=== PATIENT | male | born 1960 ===

== ENCOUNTER 2023-12-06 18:28 | Outpatient (REF) | payer MEDICAID, SELFPAY ==
--- OUTSIDE RECORDS SUMMARY | 2023-12-06 18:31 | XMS_ITS | Encounter Summary ---
Author Organization [facility] Address [address] [place] [address] Care Team Providers Care Jackaroo Name Role Phone Sabrina Shukla MD Primary Care Provider [phone] Reason for Visit * Reason Onset Date Comments Requesting Sooner Appointment 11/29/2023 Encounter Details Date Type Department Care Team (Late st Contact Info) Description 11/29/2023 Telephone [facility] General Surgery - [facility] [address], [place] [address] Laina Pillai MD [address] [place] [phone] Requesting Sooner Appointment Social History Tobacco Use Types Packs/Day Years Used Date Smoking Tobacco: Never Smokeless Tobacco: Never Alcohol Use Standard Drinks/Week Comments Not Currently 0 (1 standard drink = 0.6 oz pur e alcohol) Interpersonal Safety Answer Date Record ed Physically Hurt Never 12/05/2019 Verbally Threaten Not on file 12/05/2019 Sex and Gender Information Value Date Recorded Sex Assigned at Not on file Gender Identity Male 08/30/2022 11:14 EDT Sexual Orientation Not on file documented as of this encounter Functional Status Functional Status Response Date of Assess ment Are you deaf or do you have serious difficulty h earing? No 08/30/2022 Because of a physical, menta l, or emotional condition, does this person have difficulty doing errands alone such as visiting a doctor's office or shopping? No 11/18/2023 Cognitive Status Response Date of Assessm ent Because of a physical, menta l, or emotional condition, does this person have serious difficulty concentrating, remembering, or making decisions? No 11/18/2023 documented as of this encounter Miscellaneous Notes * Telephone Encounter - Alicia Berry - 11/30/2023 0848 EDT Called LVM explained we just had an cancellation for 12/21 come open. Reviewed he needs h&p, EKG, and CBC within 30 days. Left [facility] direct line to follow up. * Telephone Encounter - Lottie Vazquez - 11/29/2023 1344 EDT Calling to ask if there is a sooner surgery appointment? documented in this encounter Plan of Treatment Upcoming Encounters Date Type Department Care Team (Latest Contact Info) Description 12/15/2023 15:[address] [facility] Pre-Surgical Testing [address], [place] [phone] 12/22/2023 13:10 EDT Hospital Encounter [facility] OR [address] [place] [phone] Laina Pillai MD [address] [place] [phone] 12/22/2023 13:10 EDT - 12/22/2023 15:05 EDT Surgery [facility] OR [address] [place] [address] Laina Pillai MD [address] [place] [phone] Left inguinal hernia repair with mesh. [[id number] (CPT??)] Scheduled Procedures Name Priority Associated Diagnoses Date/Ti me REPAIR, HERNIA, INGUINAL, REDUCIBLE, WITHOUT HISTORY OF PRIOR REPAIR, AGE 5 YEARS OR OLDER Non-recurrent unilateral inguinal hernia without obstruction or gangrene 12/22/2023 13:10 EDT documented as of this encounter Visit Diagnoses Not on filedocumented in this encounter Care Teams Jackaroo Relationship Specialty Start Date End Date Sabrina Shukla MD [address] [place] [phone] PCP - General 01/01/12 documented as of this encounter
--- OUTSIDE RECORDS SUMMARY | 2023-12-06 18:31 | XMS_ITS | Clinical Summary ---
Author Organization [facility] Address [address] [place] [address] Care Team Providers Care Critical Care Rn Name Role Phone Sabrina Shukla MD Primary Care Provider Allergies Active Allergy Reactions Criticality Noted Date Comments Apple 12/30/2015 [place] 12/30/2015 Tree Nut GI upset 01/08/2016 Medications Medication Sig Dispensed Refills Start Date End Date Status COQ10, UBIQUINOL, ORAL Take 25 mg by mouth daily. Active HYDROmorphone (DILAUDID) 2 mg tablet Take 1 Tab by mouth every 4 hours. Daily Max: 12 mg 15 Tab 01/10/2016 Active Additional Information Patient not taking.Reported on 11/18/2023 acetaminophen (TYLENOL) 500 mg tablet Take 2 Tabs by mouth every 6 hours as needed for Pain. 01/10/2016 Active Additional Information Patient not taking.Reported on 11/18/2023 COLLAGEN MISC by misc (non-drug; combo route) route. Active Active Problems Problem Noted Date Diagnosed Date Non-recurrent unilateral ing uinal hernia without obstruction or gangrene 11/18/2023 Right inguinal hernia 12/30/2015 Umbilical hernia without obstruction and without gangrene 12/30/2015 Encounters Date Type Department Care Team Description 12/01/2023 Telephone [facility] General Surgery - [place] [address] [place] [address] Laina Pillai MD Follow-up 11/30/2023 Telephone [facility] Bariatric Surgery [facility] [place] [address] Laina Pillai MD Other 11/29/[address] [phone] Laina Pillai MD Requesting Sooner Appointment 11/22/[address] [phone] Laina Pillai MD Follow-up 11/19/[address] [phone] Laina Pillai MD Follow-up 11/18/2023 14:00 EDT Office Visit [address] [phone] Laina Pillai MD Left inguinal hernia (Primary Dx) 11/18/2023 Prep for Procedure [facility] Bariatric Surgery [facility] [place] [address] [place] [address] Laina Pillai MD Non-recurrent unilateral inguinal hernia without obstruction or gangrene (Primary Dx) from Last 3 Months Surgical History Surgery Date Site/Laterality Comments BONE GRAFT hip Medical History Medical History Date Comments Hernia, inguinal, right 2009 Current: 12/27/2015 Colitis Arthritis Family History Medical History Relation Comments *Other(comment) Child Brain Tumor Relation Status Comments Child Social History Tobacco Use Types Packs/Day Years Used Date Smoking Tobacco: Never Smokeless Tobacco: Never Tobacco Cessation:Counseling Given: Not Answered Alcohol Use Standard Drinks/Week Comments Not Currently 0 (1 standard drink = 0.6 oz pur e alcohol) Interpersonal Safety Answer Date Record ed Physically Hurt Never 12/05/2019 Verbally Threaten Not on file 12/05/2019 Sex and Gender Information Value Date Recorded Sex Assigned at Not on file Gender Identity Male 08/30/2022 11:14 EDT Sexual Orientation Not on file Obstetrics History Last Filed Vital Signs Vital Sign Reading Time Taken Comments Blood Pressure 126/84 11/18/2023 1353 EDT Pulse 105 11/18/2023 1353 EDT Temperature 36.6 ??C (97.9 ??F) 08/30/2022 1037 EDT Respiratory Rate 16 08/30/2022 1037 EDT Oxygen Saturation 98% 11/18/2023 1353 EDT Inhaled Oxygen Concentration - - Weight 83.9 kg (185 lb) 11/18/2023 1353 EDT Height 180.3 cm (5' 10.98) 11/18/2023 1353 EDT Body Mass Index 25.81 11/18/2023 1353 EDT Plan of Treatment Upcoming Encounters Date Type Department Care Team (Latest Contact Info) Description 12/15/2023 15:20 EDT Appointment [facility] Pre-Surgical Testing [address], [place] [phone] 12/22/2023 13:10 EDT Hospital Encounter [facility] OR [address] [place] [phone] Laina Pillai MD [address] [place] [phone] 12/22/2023 13:10 EDT - 12/22/2023 15:05 EDT Surgery [facility] OR [address] [place] [address] Laina Pillai MD [address] [place] [phone] Left inguinal hernia repair with mesh. [62019 (CPT??)] Scheduled Procedures Name Priority Associated Diagnoses Date/Ti me REPAIR, HERNIA, INGUINAL, REDUCIBLE, WITHOUT HISTORY OF PRIOR REPAIR, AGE 5 YEARS OR OLDER Non-recurrent unilateral inguinal hernia without obstruction or gangrene 12/22/2023 13:10 EDT Health Maintenance Due Date Last Done Comments RSV Immunization ( o r 60+ Years) (1 - 1-dose 60+ series) 2019 COVID-19 Vaccine ( - 2022-24 season) 2023 Hepatitis C Screen Completed 01/01/2012 Procedures Procedure Name Priority Date/Time Associated Diagnosis Comments HEPATITIS C AB W REFLEX TO HCV RNA BY PCR Routine 01/01/2012 10:44 EDT Screening examination for venereal disease from Last 3 Months or Most Recently Relevant to Health Maintenance Results * HEPATITIS C ANTIBODY (01/01/2012 10:44 EDT) Hepatitis C Ab Negative [facility] Comment:Reference Range: Neg ative Blood specimen (specimen) 01/01/2012 10:44 EDT 01/01/2012 10:53 EDT Sabrina Shukla MD CHEMISTRY & BLOOD GA S ORDERABLES [facility] [address] [place] [address] from Last 3 Months or Most Recently Relevant to Health Maintenance Advance Directives For more information, please contact: [phone] * Full Code (Latest Code Status on File) Date Activated Date Inactivated Comments 01/10/2016 6:34 01/10/2016 15:09 Question Answer Comments Reason for decision includes: Full code consistent with overall plan of care Who participated in the discussion? Not Discusse d Care Teams Critical Care Rn Relationship Specialty Start Date End Date Sabrina Shukla MD [address] [place] [phone] PCP - General 01/01/12
--- OUTSIDE RECORDS SUMMARY | 2023-12-06 18:31 | XMS_ITS | Encounter Summary ---
Author Organization [facility] Address [address] [place] [address] Care Team Providers Care Executive Associate Name Role Phone Sabrina Shukla MD Primary Care Provider [phone] Reason for Visit * Reason Onset Date Comments Follow-up 12/01/2023 Encounter Details Date Type Department Care Team (Late st Contact Info) Description 12/01/2023 Telephone [facility] General Surgery - [facility] [address] [place], [place] [address] Laina Pillai MD [address] [place] [phone] Follow-up Social History Tobacco Use Types Packs/Day Years [...] * Telephone Encounter - Alicia Berry - 12/01/2023 0836 EDT Called patient to review opening still available to move his surgery up as requested. Patient agrees, 12/22/23 is what works best for him, confirmed that he moved up his h & p appt with his pcp to12/05, reviewed cbc and EKG at that appt as well. Explained one week before pat call, will call day before to review arrival time. Patient expresses understanding and agrees to these details. documented in this encounter Plan of Treatment Upcoming Encounters Date Type Department Care Team (Latest Contact Info) Description 12/15/2023 15:20 EDT Appointment [facility] Pre-Surgical Testing [address] [place], [place] [phone] 12/22/2023 13:10 EDT Hospital Encounter [facility] OR [address] [place] [address] Laina Pillai MD [address] [place] [phone] 12/22/2023 13:10 EDT - 12/22/2023 15:05 EDT Surgery [facility] OR [address] [place] [address] Laina Pillai MD [address] [place] [phone] Left inguinal hernia repair with mesh. [[id number] (CPT??)] Scheduled Procedures Name Priority Associated Diagnoses Date/Ti me REPAIR, HERNIA, INGUINAL, REDUCIBLE, WITHOUT HISTORY OF PRIOR REPAIR, AGE 5 YEARS OR OLDER Non-recurrent unilateral inguinal hernia without obstruction or gangrene 12/22/2023 13:10 EDT documented as of this encounter Visit Diagnoses Not on filedocumented in this encounter Care Teams Executive Associate Relationship Specialty Start Date End Date Sabrina Shukla MD [address] [place] [phone] PCP - General 01/01/12 documented as of this encounter
--- OUTSIDE RECORDS SUMMARY | 2023-12-06 18:31 | XMS_ITS | Encounter Summary ---
Author Organization [facility] Address [address] [place] [address] Care Team Providers Care Commission Clerk Name Role Phone Sabrina Shukla MD Primary Care Provider [phone] Reason for Visit * Reason Comments New Patient Visit [facility] * Consult (Routine) - Receiving Office to Obtain Authorization Specialty Diagnoses / Procedures Referred By Katarzyna jose Referred To Contact General Surgery Diagnoses Left inguinal hernia Karma Brownlee PA-C [address] [place] [address] Surgery [address] [place] [id number] Referral ID Status Reason Start Date Expiration Date Visits Requested Visits Authorized [id number] Receiving Office to Obtain Authorization Specialty Services Required 1 1 Encounter Details Date Type Department Care Team (Late st Contact Info) Description 11/18/2023 14:00 EDT Office Visit [facility] General Surgery - Main [address] [address] Laina Pillai MD [address] [place] [phone] Left inguinal hernia (Primary Dx) Social History Tobacco Use Types Packs/Day Years [...] on file documented as of this encounter Last Filed Vital Signs Vital Sign Reading Time Taken Comments Blood Pressure 126/84 11/18/2023 1353 EDT Pulse 105 11/18/2023 1353 EDT Temperature - - Respiratory Rate - - Oxygen Saturation 98% 11/18/2023 1353 EDT Inhaled Oxygen Concentration - - Weight 83.9 kg (185 lb) 11/18/2023 1353 EDT Height 180.3 cm (5' 10.98) 11/18/2023 1353 EDT Body Mass Index 25.81 11/18/2023 1353 EDT documented in this encounter Functional Status Functional Status Response [...] No 11/18/2023 documented as of this encounter Progress Notes * Laina Pillai MD - 11/18/2023 1400 EDT [facility] General Surgery Consultation Note - Initial Visit Note Date: 11/18/2023 Patient: Jose Maria Reddy Subjective: Jose Maria Reddy is a 63 y.o. male who presents today for New Patient Visit ([facility]/) I am seeing Jose Maria Reddy in consultation, at the request of Karma Brownlee PA-C, for L inguinal bulge. Patient History of Present Illness: Bulge Location: L groin Duration: 1 year Size: 5x8 cm Increase in size: yes Reducible: Yes Pain: no Associated obstructive GI symptoms: none Hx of hernia: R inguinal + umbilical [address] Moreno Weight loss : none Weight gain: none The patient's problem list, allergies, immunizations, and medications were documented, reviewed, and updated as follows: Patient Active Problem List Diagnosis Right inguinal hernia Umbilical hernia without obstruction and without gangrene Allergies: Apples [apple], [place], and Nuts [tree nut] Immunizations: There is no immunization history on file for this patient. Medications: Current Outpatient Medications Medication acetaminophen (TYLENOL) 500 mg tablet COLLAGEN MISC COQ10, UBIQUINOL, ORAL HYDROmorphone (DILAUDID) 2 mg tablet No current facility-administered medications for this visit. History was documented as follows: Past Medical History: Diagnosis Date Arthritis Colitis Hernia, inguinal, right 2008 Current: 12/27/2015 Past Surgical History: Procedure Laterality Date BONE GRAFT hip Social History Socioeconomic History Marital status: Spouse name: Not on file Number of children: Not on file Years of education: Not on file Highest education level: Not on file Occupational History Not on file Tobacco Use Smoking status: Never Smokeless tobacco: Never Substance and Sexual Activity Alcohol use: Not Currently Drug use: Never Sexual activity: Not on file Other Topics Concern Not on file Social History Narrative Not on file Social Determinants of Health Financial Strain: Not on file Food Insecurity: Not on file Transportation Needs: Not on file Physical Activity: Not on file Housing Stability: Not on file Family History Problem Relation Age of Onset *Other(comment) Child Brain Tumor Review of Systems: A 11-point review of systems was completed. Pertinent items are noted in Subjective/HPI. Constitutional: Negative for fever. HENT: Negative for neck pain. Eyes: Negative for blurred vision. Respiratory: Negative for shortness of breath. Cardiovascular: Negative for chest pain, palpitations and orthopnea. Gastrointestinal: (-) for abdominal pain. Genitourinary: Negative for dysuria. Skin: Negative for rash. Neurological: Negative for dizziness. Endo/Heme/Allergies: Negative. Psychiatric/Behavioral: Normal. Objective: Physical Examination: Vitals: BP 126/84 Pulse 105 Ht 180.3 cm (70.98) Wt 83.9 kg (185 lb) SpO2 98% BMI 25.81 kg/m?? Mr. Reddy is a pleasant male who is awake, alert, oriented x3. He did not show any signs of acutedistress. He is not in pain. His vitals were stable. Nursing note and vitals reviewed. The patient was examined & the plan was discussed in the presence of the medical student , Candelario Silvestre, MS3. Constitutional: He appears well-nourished. No distress. HENT: Normal Head: Atraumatic. Right Ear: External ear normal. Left Ear: External ear normal. Mouth/Throat: Oropharynx is clear and moist. Eyes: Conjunctivae are normal. No scleral icterus. Neck: Neck supple. Cardiovascular: Normal rate, regular rhythm and normal heart sounds. Pulmonary/Chest: Effort normal and breath sounds normal. No respiratory distress. Abdominal: No obvious abdominal scar. Abdomen soft, lax, no distention, no RUQ & epigastric tenderness. Bowel sounds are normal .Bulge in L inguinal area. Inguinal scrotal area was examined whilethe patient was in standing position. There is obvious L groin bulge, & ( +) cough impulse. Thepatient then examined while on supine position, the bulge is easily reduced on the L side. The R groin area without defect or bulge. Both testes are descended in the scrotum with out obvious masses. Musculoskeletal: He exhibits no edema. Neurological: He is alert. Skin: Skin is warm. Psychiatric: He has a normal mood and affect. His behavior is normal. Judgment and thought content normal. Laboratory: Phlebotomy Only on 01/01/2012 Component Date Value Ref Range Status Hepatitis B Surface Ag 01/01/2012 Negative Final Reference Range: Negative Hepatitis B Surface Ab 01/01/2012 Negative Final Comment: Reference Range: Negative Interpretation depends on clinical setting. Hepatitis C Ab 01/01/2012 Negative Final Reference Range: Negative Assessment: Reducible L inguinal hernia. The above-mentioned findings were discussed with him in detail. Plan: Counseled patient about treatment options for L inguinal hernia. We discussed with him an open L inguinal hernia repair with mesh. The risks, benefits and alternatives were explained. The operative procedure was discussed including the risks of general anesthetic and medications and the potential risk of complications. The risks include but not limited to infection, bleeding, recurrence, chronic pain, nerve, vessels, visceral and testicular duct injury and retention of urine. There could also be the need for re-operation. Post-operative recovery was discussed, as well as the need for post surgery follow-up. We discusseddividing the nerves to potentially decrease the chance of post operative chronic or persistent pain. The patient understands the risks; any and all questions were answered to the patient's satisfaction. Consent form was NOT obtained. H&P from PCP CBC EKG He will be scheduled for elective repair and the procedure will be performed under general anesthesia with endotracheal intubation. He was counseled regarding signs and symptoms of incarcerated hernia and was advised to seek medical care at ED if he experiences these. I would like to thank Karma Brownlee PA-C for providing me the opportunity to participate in themanagement of this patient. Submitted by: Laina Pillai MD documented in this encounter Plan of Treatment Upcoming Encounters Date Type Department Care Team (Latest Contact Info) Description 12/15/2023 15:20 EDT Appointment [facility] Pre-Surgical Testing [address] [place] [phone] 12/22/2023 13:10 EDT Hospital Encounter [facility] OR [address] [place], [place] [phone] Laina Pillai MD [address] [place] [phone] 12/22/2023 13:10 EDT - 12/22/2023 15:05 EDT Surgery [facility] OR [address] [place] [address] Laina Pillai MD [address] [place] [phone] Left inguinal hernia repair with mesh. [[id number] (CPT??)] Scheduled Orders Name Type Priority Associated Diagnoses Orde r Schedule EKG 12-LEAD ECG Routine Left inguinal hernia Ordered: 11/18/2023 COMPLETE BLOOD COUNT Lab Routine Left inguinal hernia Expected: 11/19/2023 (Approximate), Expires: 11/17/2024 Scheduled Procedures Name Priority Associated Diagnoses Date/Ti me REPAIR, HERNIA, INGUINAL, REDUCIBLE, WITHOUT HISTORY OF PRIOR REPAIR, AGE 5 YEARS OR OLDER Non-recurrent unilateral inguinal hernia without obstruction or gangrene 12/22/2023 13:10 EDT documented as of this encounter Visit Diagnoses Diagnosis Left inguinal hernia- Primary Inguinal hernia without mention of obstruction or gangrene, unilateral or unspecified, (not specified as recurrent) Non-recurrent unilateral inguinal hernia without obstruction or gangrene documented in this encounter Care Teams Commission Clerk Relationship Specialty Start Date End Date Sabrina Shukla MD [address] [place] [phone] PCP - General 01/01/12 documented as of this encounter
--- OUTSIDE RECORDS SUMMARY | 2023-12-06 18:31 | XMS_ITS | Encounter Summary ---
Author Organization [facility] Address [address] [place] [address] Care Team Providers Care Sponsorship Coordinator Name Role Phone Sabrina Shukla MD Primary Care Provider Reason for Visit * Reason Onset Date Comments Follow-up 11/19/2023 Encounter Details Date Type Department Care Team (Late st Contact Info) Description 11/19/2023 Telephone [facility] General Surgery - [facility] [address] [place], [place] [address] Laina Pillai MD [address] [place] [phone] Follow-up Social History Tobacco Use Types [...] * Telephone Encounter - Alicia Berry - 11/19/2023 1429 EDT Called patient at [phone] and left message requesting call back to let me know if he would like to move up his surgery date to 12/31/23, currently booked for 01/10 but patient requested to be on waitlist and get in jorden. Left [facility] direct line. documented in this encounter Plan of Treatment Upcoming Encounters Date Type Department Care Team (Latest Contact Info) Description 12/15/2023 15:20 EDT Appointment [facility] Pre-Surgical Testing [address] [place] [phone] 12/22/2023 13:10 EDT Hospital Encounter [facility] OR [address] [place] [address] Laina Pillai MD [address] [place] [phone] 12/22/2023 13:10 EDT - 12/22/2023 15:05 EDT Surgery [facility] OR [address] [place] [phone] Laina Pillai MD [address] [place] [phone] Left inguinal hernia repair with mesh. [[id number] (CPT??)] Scheduled Procedures Name Priority Associated Diagnoses Date/Ti me REPAIR, HERNIA, INGUINAL, REDUCIBLE, WITHOUT HISTORY OF PRIOR REPAIR, AGE 5 YEARS OR OLDER Non-recurrent unilateral inguinal hernia without obstruction or gangrene 12/22/2023 13:10 EDT documented as of this encounter Visit Diagnoses Not on filedocumented in this encounter Care Teams Sponsorship Coordinator Relationship Specialty Start Date End Date Sabrina Shukla MD [address] [place] [phone] PCP - General 01/01/12 documented as of this encounter
--- OUTSIDE RECORDS SUMMARY | 2023-12-06 18:31 | XMS_ITS | Encounter Summary ---
Author Organization [facility] Address [address] [place] [address] Care Team Providers Care Fence Machine Operator Name Role Phone Sabrina Shukla MD Primary Care Provider [phone] Reason for Visit * Reason Comments Insect Bite Pt found tick on lef t axilla this AM in the shower. Pt removed it & believed he got it all. Tick may have been attached for 3 days. Did not appear engorged. Encounter Details Date Type Department Care Team (Late st Contact Info) Description 08/30/2022 10:31 EDT - 08/30/2022 11:22 EDT Emergency [facility] Emergency Department [address], [place] [id number] Lefty Mccoy, PAEmily [address] [place] [address] Tick bite of left back wall of thorax, initial encounter (Primary Dx) Discharge Disposition: Home or Self Care Social History Tobacco Use Types Packs/Day Years [...] Sign Reading Time Taken Comments Blood Pressure 128/105 08/30/2022 1037 EDT Pulse 111 08/30/2022 1037 EDT Temperature 36.6 ??C (97.9 ??F) 08/30/2022 1037 EDT Respiratory Rate 16 08/30/2022 1037 EDT Oxygen Saturation 96% 08/30/2022 1037 EDT Inhaled Oxygen Concentration - - Weight - - Height - - Body Mass Index - - documented in this encounter Functional Status Functional Status Response Date of Assess ment Are you deaf or do you have serious difficulty h earing? No 08/30/2022 documented as of this encounter Discharge Instructions * Discharge Instructions* Lefty Mccoy PA-C - 08/30/2022 11:11 EDT You were seen today for a tick bite. You were given a dose of prophylactic antibiotic. Follow-up with your PCP. Return to the ED for new or worsening symptoms. documented in this encounter Medications at Time of Discharge Medication Sig Dispensed Refills Start Date End Date acetaminophen (TYLENOL) 500 mg tablet Take 2 Tabs by mouth every 6 hours as needed for Pain. 01/10/2016 COLLAGEN MISC by misc (non-drug; combo route) route. COQ10, UBIQUINOL, ORAL Take 25 mg by mouth daily. HYDROmorphone (DILAUDID) 2 mg tablet Take 1 Tab by mouth every 4 hours. 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 He states he feels quite anxious. He has mild left hip pain but denies other arthralgia.Denies fever, chills, body, chest pain, palpitations. On exam he is quite anxious and moderately tachycardic. Chart review shows his heart rate was 114 during his last documented visit in [place]. He has approximately 0.5 cm area of erythema with no tenderness or swelling to his left posterior shoulder, where he pulled a tick off earlier today. Given timing of tick bite, he will be given a prophylactic dose of doxycycline. I suspect his tachycardia is due to anxiety, he is quite anxious and states he feels very anxious being here. It appears that this was present with his previous documented visit in [place] as well, I donot feel he needs further work-up of his tachycardia. He was discharged home. Encouraged follow-up with PCP. Medical Decision Making Final diagnoses: Tick bite of left back wall of thorax, initial encounter Disposition: Discharged Chief complaint: Tick bite HPI Jose Maria Reddy is a 62 y.o. male with history of anxiety who presents to the ED for a tick bite tohis left posterior shoulder that he believes has been on him for about 3 days since he landscape to3 days ago. He removed it this morning. He states it was not engorged. Denies fever, chills, body aches. He does have mild left hip pain. He states he feels quite anxious. History was provided by: Patient Records reviewed include: None Patient's pertinent PMH, FH, SH were reviewed and edited as necessary. Nursing notes reviewed. A medical screening exam was performed. Physical Exam BP (!) 128/105 Pulse (!) 111 Temp 36.6 ??C (97.9 ??F) (Oral) Resp 16 SpO2 96% Physical Exam Vitals and nursing note reviewed. Constitutional: General: He is not in acute distress. Appearance: Normal appearance. HENT: Head: Normocephalic and atraumatic. Nose: Nose normal. Mouth/Throat: Mouth: Mucous membranes are moist. Eyes: Extraocular Movements: Extraocular movements intact. Pupils: Pupils are equal, round, and reactive to light. Cardiovascular: Rate and Rhythm: Tachycardia present. Pulmonary: Effort: No respiratory distress. Skin: General: Skin is warm and dry. Comments: Approximately 0.5 cm area of erythema on his left posterior shoulder, where he states he recently pulled a tick off of himself Neurological: Mental Status: He is alert and oriented to person, place, and time. Psychiatric: Behavior: Behavior normal. Comments: Patient appears quite anxious Procedures Procedures documented in this encounter Plan of Treatment Upcoming Encounters Date Type Department Care Team (Latest Contact Info) Description 12/15/2023 15:20 EDT Appointment [facility] Pre-Surgical Testing [address] [place], [place] [id number] 12/22/2023 13:10 EDT Hospital Encounter [facility] OR [address] [place] [phone] Laina Pillai MD [address] [place] [phone] 12/22/2023 13:10 EDT - 12/22/2023 15:05 EDT Surgery [facility] OR [address] [place] [address] Laina Pillai MD [address] [place] [phone] Left inguinal hernia repair with mesh. [47640 (CPT??)] Scheduled Procedures Name Priority Associated Diagnoses Date/Ti me REPAIR, HERNIA, INGUINAL, REDUCIBLE, WITHOUT HISTORY OF PRIOR REPAIR, AGE 5 YEARS OR OLDER Non-recurrent unilateral inguinal hernia without obstruction or gangrene 12/22/2023 13:10 EDT documented as of this encounter Visit Diagnoses Diagnosis Tick bite of left back wall of thorax, initial encounter- Primary Non-recurrent unilateral inguinal hernia without obstruction or gangrene documented in this encounter Administered Medications Inactive Administered Medications - up to 3 most recent administrations Medication Order MAR Action Action Date Dose Rate Site doxycycline (VIBRAMYCIN) capsule 200 mg 200 mg, oral, NOW X1, 1 dose, On 08/30/22 at 1130, STAT Given 08/30/2022 11:17 EDT 200 mg documented in this encounter Active and Recently Administered Medications Times are shown in EDT. Scheduled Medication Order 08/28/2022 08/29/2022 08/30/2022 doxycycline (VIBRAMYCIN) capsule 200 mg (COMPLETED) 200 mg, oral, NOW X1, 1 dose, On 08/30/22 at 1130, STAT 1117 (Given - Provid er: Sherri Costa RN) documented in this encounter Orders Medications Ordered That Wilder ht Not Have Been Administered Count Last Ordered Date First Ordered Date doxycycline (VIBRAMYCIN) capsule 200 mg 1 0 08/30/2022 documented in this encounter Care Teams Fence Machine Operator Relationship Specialty Start Date End Date Sabrina Shukla MD [address] [place] [address] PCP - General 01/01/12 documented as of this encounter
--- OUTSIDE RECORDS SUMMARY | 2023-12-06 18:31 | XMS_ITS | Encounter Summary ---
Author Organization [facility] Address [address] [place] [address] Care Team Providers Care Apparel Sales Leader Name Role Phone Sabrina Shukla MD Primary Care Provider [phone] Encounter Details Date Type Department Care Team (Latest Contact Info) Description 11/18/2023 Prep for Procedure [facility] Bariatric Surgery [facility] [address] [place], [place] [phone] Laina Pillai MD [address] [place] [phone] Non-recurrent unilateral inguinal hernia without obstruction or gangrene (Primary Dx) Social History Tobacco Use Types [...] No 11/18/2023 documented as of this encounter Plan of Treatment Upcoming Encounters Date Type Department Care Team (Latest Contact Info) Description 12/15/2023 15:20 EDT Appointment [facility] Pre-Surgical Testing [address] [place], [place] [phone] 12/22/2023 13:10 EDT Hospital Encounter [facility] OR [address] [place] [phone] Laina Pillai MD [address] [place] [phone] 12/22/2023 13:10 EDT - 12/22/2023 15:05 EDT Surgery [facility] OR [address] [place] [phone] Laina Pillai MD [address] [place] [phone] Left inguinal hernia repair with mesh. [[id number] (CPT??)] Scheduled Procedures Name Priority Associated Diagnoses Date/Ti me REPAIR, HERNIA, INGUINAL, REDUCIBLE, WITHOUT HISTORY OF PRIOR REPAIR, AGE 5 YEARS OR OLDER Non-recurrent unilateral inguinal hernia without obstruction or gangrene 12/22/2023 13:10 EDT documented as of this encounter Visit Diagnoses Diagnosis Non-recurrent unilateral inguinal hernia without obstruction or gangrene- Primary Non-recurrent unilateral inguinal hernia without obstruction or gangrene- Primary Non-recurrent unilateral inguinal hernia without obstruction or gangrene documented in this encounter Orders Case Request Count Last Ordered Date First Orde red Date CASE REQUEST OPERATING ROOM 1 11/18/2023 documented in this encounter Care Teams Apparel Sales Leader Relationship Specialty Start Date End Date Sabrina Shukla MD [address] [place] [address] PCP - General 01/01/12 documented as of this encounter
--- OUTSIDE RECORDS SUMMARY | 2023-12-06 18:31 | XMS_ITS | Encounter Summary ---
Author Organization [facility] Address [address] [place] [address] Care Team Providers Care Professional Nurse Name Role Phone Sabrina Shukla MD Primary Care Provider [phone] Reason for Visit * Reason Onset Date Comments Follow-up 11/22/2023 Encounter Details Date Type Department Care Team (Late st Contact Info) Description 11/22/2023 Telephone [facility] General Surgery - [facility] [address] [place], [place] [phone] Laina Pillai MD [address] [place] [phone] Follow-up Social History Tobacco Use Types [...] * Telephone Encounter - Alicia Berry - 11/22/2023 9731 EDT Patient called [facility] direct line to advise that 12/31/23 does work and asked to remain on waitlist for sooner surgery, advised his h/p is scheduled with his pcp and I advised him pat call 12/24/23 documented in this encounter Plan of Treatment Upcoming Encounters Date Type Department Care Team (Latest Contact Info) Description 12/15/2023 15:20 EDT Appointment [facility] Pre-Surgical Testing [address] [place], [place] [phone] 12/22/2023 13:10 EDT Hospital Encounter [facility] OR [address] [place], [place] [phone] Laina Pillai MD [address] [place] [phone] 12/22/2023 13:10 EDT - 12/22/2023 15:05 EDT Surgery [facility] OR [address] [place], [place] [phone] Laina Pillai MD [address] [place] [phone] Left inguinal hernia repair with mesh. [[id number] (CPT??)] Scheduled Procedures Name Priority Associated Diagnoses Date/Ti me REPAIR, HERNIA, INGUINAL, REDUCIBLE, WITHOUT HISTORY OF PRIOR REPAIR, AGE 5 YEARS OR OLDER Non-recurrent unilateral inguinal hernia without obstruction or gangrene 12/22/2023 13:10 EDT documented as of this encounter Visit Diagnoses Not on filedocumented in this encounter Care Teams Professional Nurse Relationship Specialty Start Date End Date Sabrina Shukla MD [address] [place] [id number] PCP - General 01/01/12 documented as of this encounter
--- OUTSIDE RECORDS SUMMARY | 2023-12-06 18:31 | XMS_ITS | Referral Summary ---
Author Organization [facility] Address [address] [place] [address] Care Team Providers Care Return Checker Name Role Phone Sabrina Shukla MD Primary Care Provider Encounters Date Type Department Care Team Description 12/01/[address] [phone] Laina Pillai MD Follow-up 11/30/2023 Telephone [facility] Bariatric Surgery [facility] [address] [place], [place] [phone] Laina Pillai MD Other 11/29/[address] [phone] Laina Pillai MD Requesting Sooner Appointment 11/22/[address] [phone] Laina Pillai MD Follow-up 11/19/[address] [phone] Laina Pillai MD Follow-up 11/18/2023 Prep for Procedure [facility] Bariatric Surgery [facility] [address] [place], [place] [phone] Laina Pillai MD Non-recurrent unilateral inguinal hernia without obstruction or gangrene (Primary Dx) 11/18/2023 14:00 EDT Office Visit [facility] General Surgery - Main [address] [phone] Laina Pillai MD Left inguinal hernia (Primary Dx) from Last 3 Months Allergies Active Allergy Reactions Criticality Noted Date Comments Apple 12/30/2015 [place] 12/30/2015 Tree Nut GI upset 01/08/2016 Medications [...] hernia without obstruction and without gangrene 12/30/2015 Social History Tobacco Use Types Packs/Day Years [...] 11:14 EDT Sexual Orientation Not on file Last Filed Vital Signs Vital Sign Reading [...] Body Mass Index 25.81 11/18/2023 1353 EDT Functional Status Functional Status Response Date of [...] concentrating, remembering, or making decisions? No 11/18/2023 Plan of Treatment Upcoming Encounters Date Type Department Care Team (Latest Contact Info) Description 12/15/2023 15:20 EDT Appointment [facility] Pre-Surgical Testing [address] [place] [phone] 12/22/2023 13:10 EDT Hospital Encounter [facility] [place] OR [address] [place], [place] [phone] Laina Pillai MD [address] [place] [phone] 12/22/2023 13:10 EDT - 12/22/2023 15:05 EDT Surgery [facility] [place] OR [address] [place], [place] [phone] Laina Pillai MD [address] [place] [phone] Left inguinal hernia repair with mesh. [[id number] (CPT??)] Scheduled Procedures Name Priority Associated Diagnoses Date/Ti me REPAIR, HERNIA, INGUINAL, REDUCIBLE, WITHOUT HISTORY OF PRIOR REPAIR, AGE 5 YEARS OR OLDER Non-recurrent unilateral inguinal hernia without obstruction or gangrene 12/22/2023 13:10 EDT Procedures Procedure Name Priority Date/Time Associated Diagnosis Comments HEPATITIS C AB W REFLEX TO HCV RNA BY PCR Routine 01/01/2012 10:44 EDT Screening examination for venereal disease from Last 3 Months or Most Recently Relevant to Health Maintenance Results * HEPATITIS C ANTIBODY (01/01/2012 10:44 EDT) Hepatitis C Ab Negative [facility] Comment:Reference Range: Neg ative Blood specimen (specimen) 01/01/2012 10:44 EDT 01/01/2012 10:53 EDT Sabrina Shukla MD CHEMISTRY & BLOOD GA S ORDERABLES [facility] [address] [place] [address] from Last 3 Months or Most Recently Relevant to Health Maintenance Advance Directives For more information, please contact: [phone] * Full Code (Latest Code Status on File) Date Activated Date Inactivated Comments 01/10/2016 6:34 01/10/2016 15:09 Question Answer Comments Reason for decision includes: Full code consistent with overall plan of care Who participated in the discussion? Not Discusse d Care Teams Return Checker Relationship Specialty Start Date End Date Sabrina Shukla MD [address] [place] [address] PCP - General 01/01/12
--- OUTSIDE RECORDS SUMMARY | 2023-12-06 18:31 | XMS_ITS | Encounter Summary ---
Author Organization [facility] Address [address] [place] [address] Care Team Providers Care [employer] Combination Teacher Name Role Phone Sabrina Shukla MD Primary Care Provider [phone] Reason for Visit * Reason Onset Date Comments Other 11/30/2023 Encounter Details Date Type Department Care Team (Late st Contact Info) Description 11/30/2023 Telephone [facility] Bariatric Surgery [address] [phone] Laina Pillai MD [address] [place] [phone] Other Social History Tobacco Use Types Packs/Day Years [...] encounter Miscellaneous Notes * Telephone Encounter - RichieDenver denney - 11/30/2023 1523 EDT Patient returning call to Alicia Berry about her message below, he states he can do the Earlierdate offered - Please call him back to confirm .. Called LVM explained we just had an cancellation for 12/21 come open. Reviewed he needs h&p, EKG, and CBC within 30 days. Left [facility] direct line to follow up. documented in this encounter Plan of Treatment Upcoming Encounters Date Type Department Care Team (Latest Contact Info) Description 12/15/2023 15:20 EDT Appointment [facility] Pre-Surgical Testing [address] [place] [phone] 12/22/2023 13:10 EDT Hospital Encounter [facility] OR [address] [place] [address] Laina Pillai MD [address] [place] [phone] 12/22/2023 13:10 EDT - 12/22/2023 15:05 EDT Surgery [facility] OR [address] [place] [address] Laina Pillai MD [address] [place] [phone] Left inguinal hernia repair with mesh. [[id number] (CPT??)] Scheduled Procedures Name Priority Associated Diagnoses Date/Ti me REPAIR, HERNIA, INGUINAL, REDUCIBLE, WITHOUT HISTORY OF PRIOR REPAIR, AGE 5 YEARS OR OLDER Non-recurrent unilateral inguinal hernia without obstruction or gangrene 12/22/2023 13:10 EDT documented as of this encounter Visit Diagnoses Not on filedocumented in this encounter Care Teams [employer] Combination Teacher Relationship Specialty Start Date End Date Sabrina Shukla MD [address] [place] [phone] PCP - General 01/01/12 documented as of this encounter
--- OUTSIDE RECORDS SUMMARY | 2023-12-06 18:32 | XMS_ITS | Encounter Summary ---
Author Organization [facility] Address [address] [place] [address] Care Team Providers Care Race And Sports Book Writer Name Role Phone Sabrina Shukla MD Primary Care Provider Reason for Visit * Reason Comments New Patient Visit INGUINAL HERNIA * Consult (Routine) - Closed Specialty Diagnoses / Procedures Referred By Katarzyna jose Referred To Contact General Surgery Diagnoses Inguinal hernia, right Klever, Brendan Nobles MD [address] [place] [phone] Bubba Moreno MD [address] [place] [phone] Referral ID Status Reason Start Date Expiration Date Visits Re quested Visits Authorized [id number] Closed 1 1 Encounter Details Date Type Department Care Team (Late st Contact Info) Description 12/30/2015 14:00 EDT Office Visit [facility] General Surgery - [address] [address] Bubba Moreno MD [address] [place] [phone] Right inguinal hernia (Primary Dx); Umbilical hernia without obstruction and without gangrene Social History Tobacco Use Types Packs/Day Years Used Date Smoking Tobacco: Never Smokeless Tobacco: Never Sex and Gender Information Value Date Recorded Sex Assigned at Not on file Gender Identity Male 08/30/2022 11:14 EDT Sexual Orientation Not on file documented as of this encounter Last Filed Vital Signs Vital Sign Reading Time Taken Comments Blood Pressure 122/70 12/30/2015 1409 EDT Pulse 84 12/30/2015 1409 EDT Temperature - - Respiratory Rate 16 12/30/2015 1409 EDT Oxygen Saturation - - Inhaled Oxygen Concentration - - Weight 92.4 kg (203 lb 9.6 oz) 12/30/2015 1409 E DT Height 181.6 cm (5' 11.5) 12/30/2015 1409 EDT Body Mass Index 28 12/30/2015 1409 EDT documented in this encounter Progress Notes * Bubba Moreno MD - 12/30/2015 1650 EDT Subjective: Patient ID: Jose Maria Reddy is an 55 y.o. male. Chief Complaint Patient presents with ??? New Patient Visit INGUINAL HERNIA HPI He has bulging in his right groin that is getting larger and more uncomfortable with activity. It has been present for a long time. He wishes to have something done. No bulge on the left groin. No GI symptoms. No symptoms. Patient Active Problem List Diagnosis ??? Right inguinal hernia ??? Umbilical hernia without obstruction and without gangrene Past Medical History Diagnosis Date ??? Arthritis ??? Colitis ??? Hernia, inguinal, right 2008 Current: 12/27/2015 Past Surgical History Procedure Laterality Date ??? Bone graft hip Family History Problem Relation Age of Onset ??? *Other(comment) Child Brain Tumor Social Social History Substance Use Topics ??? Smoking status: Never Smoker ??? Smokeless tobacco: Never Used ??? Alcohol use None No current outpatient prescriptions on file prior to visit. No current facility-administered medications on file prior to visit. Allergies Allergen Reactions ??? Apples [Apple] ??? [place] ROS - See HPI A 12 system review is otherwise negative Objective: Visit Vitals ??? BP 122/70 ??? Pulse 84 ??? Resp 16 ??? Ht 181.6 cm (71.5) ??? Wt 92.4 kg (203 lb 9.6 oz) ??? BMI 28 kg/m2 Physical Exam HEENT: No scleral icterus Chest: clear bilaterally Heart: Regular Abdomen: soft and non-tender. No mass or organomegaly. Reducible umbilical hernia. 2-3 cm defect. Large right inguinal hernia descending into scrotum. No left inguinal hernia Genitalia are otherwise normal Exterem: No deformity or edema Skin: No rash Assessment: Large right inguinal hernia and umbilical hernia Plan: Repair both hernias with mesh. I discussed both procedures with him at length. He is aware of potential complications. We obtained written consent today. (K40.90) Right inguinal hernia (primary encounter diagnosis) Plan: PLACE SEQUENTIAL COMPRESSION DEVICE, INSERT PERIPHERAL IV, lactated ringers (LR) infusion, STATUS: OUTPATIENT SURGICAL OP BED/SERVICES, FULL CODE, EKG 12-LEAD, ceFAZolin (ANCEF) syringe 2 g, NURSING COMMUNICATION, NURSING COMMUNICATION, NURSING COMMUNICATION (K42.9) Umbilical hernia without obstruction and without gangrene Plan: PLACE SEQUENTIAL COMPRESSION DEVICE, INSERT PERIPHERAL IV, lactated ringers (LR) infusion, STATUS: OUTPATIENT SURGICAL OP BED/SERVICES, FULL CODE, EKG 12-LEAD, ceFAZolin (ANCEF) syringe 2 g, NURSING COMMUNICATION, NURSING COMMUNICATION, NURSING COMMUNICATION Bubba Moreno MD No orders of the defined types were placed in this encounter. documented in this encounter Plan of Treatment Upcoming Encounters Date Type Department Care Team (Latest Contact Info) Description 12/15/2023 15:20 EDT Appointment [facility] Pre-Surgical Testing [address], [place] [phone] 12/22/2023 13:10 EDT Hospital Encounter [facility] OR [address] [place] [address] Laina Pillai MD [address] [place] [phone] 12/22/2023 13:10 EDT - 12/22/2023 15:05 EDT Surgery [facility] OR [address] [place] [address] Laina Pillai MD [address] [place] [phone] Left inguinal hernia repair with mesh. [74641 (CPT??)] Scheduled Procedures Name Priority Associated Diagnoses Date/Ti me REPAIR, HERNIA, INGUINAL, REDUCIBLE, WITHOUT HISTORY OF PRIOR REPAIR, AGE 5 YEARS OR OLDER Non-recurrent unilateral inguinal hernia without obstruction or gangrene 12/22/2023 13:10 EDT documented as of this encounter Procedures Procedure Name Priority Date/Time Associated Diagnosis Comments ECG REPORT - SCANNED 01/02/2016 13:50 EDT EKG 12-LEAD Routine 12/30/2015 15:12 EDT Right inguinal hernia Umbilical hernia without obstruction and without gangrene documented in this encounter Results * ECG REPORT - SCANNED (01/02/2016 13:50 EDT) 01/02/2016 13:5 0 EDT Scan 2 Wheel Installer PROCEDURE/MINOR LAURA GICAL ORDERABLES * EKG 12-LEAD (12/30/2015 15:12 EDT) 12/30/2015 15:1 2 EDT Narrative [facility] EKG - 01/01/2016 14:38 EDT ? [facility] ? Test Date: ?2015-12-30 Pat Name: ? JOSE MARIA REDDY ?Department: ?? MP5 Gen Surg ? Room: ? Gender: ? M ?Water Quality Manager: ?? [id number] : ?1960 ? Requested By: ROBERTO Duke Order Number: [id number] ?Reading MD: ?? JOSE MARCANO MD ? Measurements Intervals ?[place] ? Rate: ? 75 ? P: ?-10 NE: ? 134 ?QRS: ?16 QRSD: ? 98 ? T: ?51 QT: ? 384 ? QTc: ?430 ? Interpretive Statements SINUS RHYTHM Compared to ECG 04/11/2001 16:55:17 No significant changes I reviewed the tracing and have either agreed or edited the findings in this report. Electronically Signed On 01-01-16 14:38:40 EDT by JOSE MARCANO MD. Procedure Note Jose Marcano MD - 01/01/2016 [facility] Test Date: 2015-12-30 Pat Name: JOSE MARIA REDDY Department: 5 Gen Surg Room: Gender: Water Quality Manager: [id number] : 1960 Requested By: ROBERTO Duke Order Number: [id number] Reading MD: JOSE MARCANO MD Measurements Intervals [place] Rate: 75 P: -10 NE: 134 QRS: 16 QRSD: 98 T: 51 QT: 384 QTc: 430 Interpretive Statements SINUS RHYTHM Compared to ECG 04/11/2001 16:55:17 No significant changes I reviewed the tracing and have either agreed or edited the findings inthis report. Electronically Signed On 01-01-16 14:38:40 EDT by JOSE KEENE. Bubba Moreno MD CARDIAC ECG ORDERABL ES [facility] EKG documented in this encounter Visit Diagnoses Diagnosis Right inguinal hernia- Primary Inguinal hernia without mention of obstruction or gangrene, unilateral or unspecified, (not specified as recurrent) Umbilical hernia without obstruction and without gangrene Non-recurrent unilateral inguinal hernia without obstruction or gangrene documented in this encounter Care Teams Race And Sports Book Writer Relationship Specialty Start Date End Date Sabrina Shukla MD [address] [facility] [place] [phone] PCP - General 01/01/12 documented as of this encounter
--- OUTSIDE RECORDS SUMMARY | 2023-12-06 18:32 | XMS_ITS | Encounter Summary ---
Author Organization [facility] Address [address] [place] [address] Care Team Providers Care Director Product Name Role Phone Sabrina Shukla MD Primary Care Provider [phone] Encounter Details Date Type Department Care Team (Latest Contact Info) Description 01/01/2012 10:34 EDT - 01/01/2012 23:59 EDT Hospital Encounter [facility] [address] [place] [address] Sabrina Shukla MD [address] [place] [phone] Discharge Disposition: Home or Self Care Social History Tobacco Use Types Packs/Day Years Used Date Smoking Tobacco: Never Assessed Sex and Gender Information Value Date Recorded Sex Assigned at Not on file Gender Identity Male 08/30/2022 11:14 EDT Sexual Orientation Not on file documented as of this encounter Discharge Disposition Disposition Code Departure Means Destination Home or Self Usp documented in this encounter Plan of Treatment Upcoming Encounters Date Type Department Care Team (Latest Contact Info) Description 12/15/2023 15:20 EDT Appointment [facility] Pre-Surgical Testing [address] [place] [address] 12/22/2023 13:10 EDT Hospital Encounter [facility] OR [address] [place], [place] [address] Laina Pillai MD [address] [place] [phone] 12/22/2023 13:10 EDT - 12/22/2023 15:05 EDT Surgery [facility] OR [address] [place] [phone] Laina Pillai MD [address] [place] [phone] Left inguinal hernia repair with mesh. [81825 (CPT??)] Scheduled Procedures Name Priority Associated Diagnoses Date/Ti me REPAIR, HERNIA, INGUINAL, REDUCIBLE, WITHOUT HISTORY OF PRIOR REPAIR, AGE 5 YEARS OR OLDER Non-recurrent unilateral inguinal hernia without obstruction or gangrene 12/22/2023 13:10 EDT documented as of this encounter Visit Diagnoses Not on filedocumented in this encounter Care Teams Director Product Relationship Specialty Start Date End Date Sabrina Shukla MD [address] [place] [phone] PCP - General 01/01/12 documented as of this encounter
--- OUTSIDE RECORDS SUMMARY | 2023-12-06 18:32 | XMS_ITS | Encounter Summary ---
Author Organization [facility] Address [address] [place] [address] Care Team Providers Care Lpn Rn Name Role Phone Unavailable Primary Care Provider Unavailabl e Encounter Details Date Type Department Care Team (Latest Contact Info) Description 04/11/2001 16:04 EST Hospital Encounter [facility] Emergency Department - [facility] [address] [place] [address] Emergency, MD Vinod Discharge Disposition: Home or Self Care Social History Tobacco Use Types Packs/Day Years Used Date Smoking Tobacco: Never Assessed Sex and Gender Information Value Date Recorded Sex Assigned at Not on file Gender Identity Male 08/30/2022 11:14 EDT Sexual Orientation Not on file documented as of this encounter Discharge Disposition Disposition Code Departure Means Destination Home or Self Care documented in this encounter Plan of Treatment Upcoming Encounters Date Type Department Care Team (Latest Contact Info) Description 12/15/2023 15:20 EDT Appointment [facility] Pre-Surgical Testing [address] [place], [place] [address] 12/22/2023 13:10 EDT Hospital Encounter [facility] OR [address] [place], [place] [phone] Laina Pillai MD [address] [place] [phone] 12/22/2023 13:10 EDT - 12/22/2023 15:05 EDT Surgery [facility] OR [address] [place] [address] Laina Pillai MD [address] [place] [phone] Left inguinal hernia repair with mesh. [77509 (CPT??)] Scheduled Procedures Name Priority Associated Diagnoses Date/Ti me REPAIR, HERNIA, INGUINAL, REDUCIBLE, WITHOUT HISTORY OF PRIOR REPAIR, AGE 5 YEARS OR OLDER Non-recurrent unilateral inguinal hernia without obstruction or gangrene 12/22/2023 13:10 EDT documented as of this encounter Procedures Procedure Name Priority Date/Time Associated Diagnosis Comments TROPONIN I Routine 04/11/2001 17:58 EST CK MB WITH TOTAL CK Routine 04/11/2001 1 7:58 EST CREATININE Routine 04/11/2001 17:00 EST HEMAGRAM & DIFF Routine 04/11/2001 17:00 EST TROPONIN I Routine 04/11/2001 17:00 EST PTT Routine 04/11/2001 17:00 EST PROTIME Routine 04/11/2001 17:00 EST BUN Routine 04/11/2001 17:00 EST MAGNESIUM Routine 04/11/2001 17:00 EST GLUCOSE, SERUM Routine 04/11/2001 17:00 EST CK MB WITH TOTAL CK Routine 04/11/2001 1 7:00 EST ELECTROLYTES Routine 04/11/2001 17:00 EST CHEST PA AND LATERAL Routine 04/11/2001 16:42 EST documented in this encounter Results * TROPONIN I (04/11/2001 17:58 EST) [facility] Troponin I pre 2011 <0.15 ng/ml [facility] Comment: normal: less than 0.15 indeterminate: 0.15-1.50 positive: greater than 1.50 04/11/2001 17:5 8 EST 04/11/2001 17:58 EST Default Emergency MD CHEMISTRY & BLOOD G ORDERABLES Performing Organization Address [facility] de Phone Number [facility] [address] [place] [address] * CK MB WITH TOTAL CK (04/11/2001 17:58 EST) [facility] CK 162 57 - 374 U/L [facility] MB 2.9 0 - 5.0 ng/ml [facility] CK-MB Index Not calculated , normal MB. 0 - 2.5 [facility] 04/11/2001 17:5 8 EST 04/11/2001 17:58 EST Default Emergency MD CHEMISTRY & BLOOD G ORDERABLES Performing Organization Address [facility] de Phone Number [facility] [address] [place] [address] * TROPONIN I (04/11/2001 17:00 EST) [facility] Troponin I pre 2011 Duplicate Test Request ng/ml [facility] 04/11/2001 17:0 0 EST 04/11/2001 17:01 EST Default Emergency MD CHEMISTRY & BLOOD G ORDERABLES Performing Organization Address [facility] Co de Phone Number [facility] [address] [place] [address] * GLUCOSE, SERUM (04/11/2001 17:00 EST) [facility] Glucose, Serum 90 70 - 110 mg/dl [facility] 04/11/2001 17:0 0 EST 04/11/2001 17:01 EST Default Emergency MD CHEMISTRY & BLOOD G ORDERABLES Performing Organization Address [facility] de Phone Number [facility] [address] [place] [address] * PTT (04/11/2001 17:00 EST) PTT 30 23 - 33 secs [facility] Comment:Therapeutic Heparin range: 58-100 seconds 04/11/2001 17:0 0 EST 04/11/2001 17:01 EST Default Emergency MD HEMATOLOGY & PF4 OR DERABLES Performing Organization Address [facility] de Phone Number [facility] [address] [place] [address] * (ABNORMAL) PROTIME (04/11/2001 17:00 EST) Pro Time 13.3(H) 11.3 - 13.1 secs [facility] I.N.R. 1.2 0.8 - 1.2 Ratio [facility] Comment: Moderate Intensity Coumadin INR = 2.0-3.0 Adjustments in anticoagulant therapy dose should be based upon the INR and NOT the Pro Time. 04/11/2001 17:0 0 EST 04/11/2001 17:01 EST Default Emergency MD HEMATOLOGY & PF4 OR DERABLES Performing Organization Address [facility] de Phone Number [facility] [address] [place] [address] * MAGNESIUM (04/11/2001 17:00 EST) Pathologist [facility] Magnesium 2.0 1.7 - 2.8 mg/dl [facility] 04/11/2001 17:0 0 EST 04/11/2001 17:01 EST Default Emergency MD CHEMISTRY & BLOOD G ORDERABLES Performing Organization Address [facility] de Phone Number [facility] [address] [place] [address] * ELECTROLYTES (04/11/2001 17:00 EST) Sodium 136 136 - 145 mEq/L [facility] Potassium 4.2 3.5 - 5.0 mEq/L [facility] Chloride 104 96 - 110 mEq/L [facility] CO2 24 24 - 30 mEq/L [facility] 04/11/2001 17:0 0 EST 04/11/2001 17:01 EST Default Emergency MD CHEMISTRY & BLOOD G ORDERABLES Performing Organization Address [facility] de Phone Number [facility] [address] [place] [address] * CREATININE (04/11/2001 17:00 EST) Creatinine 0.8 0.7 - 1.5 mg/dl [facility] 04/11/2001 17:0 0 EST 04/11/2001 17:01 EST Default Emergency MD HISTORICAL LAB FOR SQ LOAD Performing Organization Address [facility] Phone Number [facility] [address] [place] [address] * CK MB WITH TOTAL CK (04/11/2001 17:00 EST) CK Duplicate Test Request 57 - 374 U/L [facility] Duplicate Test Request 0 - 5.0 ng/ml [facility] CK-MB Index Duplicate Test Request 0 - 2.5 [facility] 04/11/2001 17:0 0 EST 04/11/2001 17:01 EST Default Emergency MD CHEMISTRY & BLOOD G ORDERABLES Performing Organization Address [facility] de Phone Number [facility] [address] [place] [address] * HEMAGRAM & DIFF (04/11/2001 17:00 EST) WBC 8.08 4.0 - 10.4 K/cmm [facility] RBC 4.62 4.36 - 5.78 M/cmm [facility] Hemoglobin 14.4 13.8 - 17.3 gm/dl [facility] HCT 42.8 39.5 - 50.2 % [facility] MCV 93 81 - 95 fl [facility] MCH 31.2 27.6 - 33.0 pg [facility] MCHC 33.7 32.8 - 36.4 gm/dl [facility] PLT 222 141 - 320 K/cmm [facility] RDW-CV 12.1 11.8 - 14.1 % [facility] % Neutrophils 63.8 45.5 - 79.7 % [facility] % Lymphocytes 27.5 15.0 - 46.8 % [facility] % Monocytes 6.6 1.8 - 12.0 % [facility] % Eosinophils 1.9 0.6 - 6.9 % [facility] % Basophils 0.2 0.2 - 1.4 % [facility] ABS Neutrophils 5.16 2.20 - 8.85 K/cmm [facility] ABS Lymphs 2.22 1.09 - 3.30 K/cmm [facility] ABS Monocytes 0.53 0.1 - 0.8 K/cmm [facility] ABS Eosinophils 0.15 0.03 - 0.61 K/cmm [facility] ABS Basophils 0.02 0.01 - 0.11 K/cmm [facility] Type of Diff: Automated [facility] 04/11/2001 17:0 0 EST 04/11/2001 17:01 EST Default Emergency HISTORICAL LAB FOR SQ LOAD Performing Organization Address [facility] Co de Phone Number [facility] [address] [place] [address] * BUN (04/11/2001 17:00 EST) BUN 11 10 - 26 mg/dl [facility] 04/11/2001 17:0 0 EST 04/11/2001 17:01 EST Default Emergency CHEMISTRY & BLOOD G ORDERABLES Performing Organization Address [facility] Co de Phone Number [facility] [address] [place] [address] * CHEST PA AND LATERAL (04/11/2001 16:42 EST) Anatomical Region Laterality Modality Other 04/11/2001 16:4 2 EST Narrative 03/22/2009 2:28 EST cp r/o PNEUMONIA CHEST 04/11/01 16:45 HISTORY: Chest pain. Rule out pneumonia. PA and lateral views of the chest show that the cardiac silhouette is within normal limits and the lung duran are clear. No evidence of pneumonia is seen. /vcp Procedure Note Anton Mendez MD - 03/22/2009 cp r/o PNEUMONIA CHEST 04/11/01 16:45 HISTORY: Chest pain. Rule out pneumonia. PA and lateral views of the chest show that the cardiac silhouette is within normal limits and the lung duran are clear. No evidence of pneumonia is seen. /vcp Renetta Cedeño PT IMG DIAGNOSTIC IMAGI NG ORDERABLES documented in this encounter Visit Diagnoses Not on filedocumented in this encounter
--- OUTSIDE RECORDS SUMMARY | 2023-12-06 18:32 | XMS_ITS | Encounter Summary ---
Author Organization [facility] Address [address] [place] [address] Care Team Providers Care Horse Farm Manager Name Role Phone Sabrina Shukla MD Primary Care Provider [phone] Reason for Visit * Reason Onset Date Comments Medication Management 01/01/2016 Calling fo r antibiotics to be called into his Pharmacy as he needs them prior to right inguinal and umbilical hernia repair he was told at clinic visit. Encounter Details Date Type Department Care Team (Late st Contact Info) Description 01/01/2016 Telephone [facility] General Surgery - [facility] [address] [place], [place] [phone] Bubba Moreno MD [address] [facility] [address] [place] [phone] Medication Management (Calling for antibiotics to be called into his Pharmacy as he needs them prior to right inguinal and umbilical hernia repair he was told at clinic visit.) Social History Tobacco Use Types Packs/Day Years Used Date Smoking Tobacco: Never Smokeless Tobacco: Never Sex and Gender Information Value Date Recorded Sex Assigned at Not on file Gender Identity Male 08/30/2022 11:14 EDT Sexual Orientation Not on file documented as of this encounter Miscellaneous Notes * Telephone Encounter - Julia Anguiano RN - 01/01/2016 1418 EDT Left detailed message antibiotics are given in preop, not prior to coming in, call prn. documented in this encounter Plan of Treatment Upcoming Encounters Date Type Department Care Team (Latest Contact Info) Description 12/15/2023 15:[address] [facility] Pre-Surgical Testing [address] [place], [place] [phone] 12/22/2023 13:10 EDT Hospital Encounter [facility] OR [address] [place] [phone] Laina Pillai MD [address] [place] [phone] 12/22/2023 13:10 EDT - 12/22/2023 15:05 EDT Surgery [facility] OR [address] [place] [address] Laina Pillai MD [address] [place] [phone] Left inguinal hernia repair with mesh. [78156 (CPT??)] Scheduled Procedures Name Priority Associated Diagnoses Date/Ti me REPAIR, HERNIA, INGUINAL, REDUCIBLE, WITHOUT HISTORY OF PRIOR REPAIR, AGE 5 YEARS OR OLDER Non-recurrent unilateral inguinal hernia without obstruction or gangrene 12/22/2023 13:10 EDT documented as of this encounter Visit Diagnoses Not on filedocumented in this encounter Care Teams Horse Farm Manager Relationship Specialty Start Date End Date Sabrina Shukla MD [address] [place] [phone] PCP - General 01/01/12 documented as of this encounter
--- OUTSIDE RECORDS SUMMARY | 2023-12-06 18:32 | XMS_ITS | Encounter Summary ---
Author Organization [facility] Address [address] [place] [address] Care Team Providers Care Tieing Machine Operator Name Role Phone Sabrina Shukla MD Primary Care Provider [phone] Encounter Details Date Type Department Care Team (Latest Contact Info) Description 05/14/2013 12:38 EST - 05/14/2013 23:[address] [facility] [address] [place] [address] Unknown, Provider, Discharge Disposition: Home or Self Care Social History Tobacco Use Types Packs/Day Years Used Date Smoking Tobacco: Never Assessed Sex and Gender Information Value Date Recorded Sex Assigned at Not on file Gender Identity Male 08/30/2022 11:14 EDT Sexual Orientation Not on file documented as of this encounter Discharge Disposition Disposition Code Departure Means Destination Home or Self Long Term documented in this encounter Plan of Treatment Upcoming Encounters Date Type Department Care Team (Latest Contact Info) Description 12/15/2023 15:20 EDT Appointment [facility] Pre-Surgical Testing [address] [place], [place] [phone] 12/22/2023 13:10 EDT Hospital Encounter [facility] OR [address] [place], [place] [phone] Laina Pillai MD [address] [place] [phone] 12/22/2023 13:10 EDT - 12/22/2023 15:05 EDT Surgery [facility] [place] [address] [place] [address] Laina Pillai MD [address] [place] [phone] Left inguinal hernia repair with mesh. [21000 (CPT??)] Scheduled Procedures Name Priority Associated Diagnoses Date/Ti me REPAIR, HERNIA, INGUINAL, REDUCIBLE, WITHOUT HISTORY OF PRIOR REPAIR, AGE 5 YEARS OR OLDER Non-recurrent unilateral inguinal hernia without obstruction or gangrene 12/22/2023 13:10 EDT documented as of this encounter Visit Diagnoses Not on filedocumented in this encounter Care Teams Tieing Machine Operator Relationship Specialty Start Date End Date Sabrina Shukla MD [address] [place] [phone] PCP - General 01/01/12 documented as of this encounter
--- OUTSIDE RECORDS SUMMARY | 2023-12-06 18:32 | XMS_ITS | Encounter Summary ---
Author Organization [facility] Address [address] [place] [address] Care Team Providers Care Coat Feller Name Role Phone Sabrina Shukla MD Primary Care Provider [phone] Reason for Visit * Reason Onset Date Comments Other 2012 Encounter Details Date Type Department Care Team (Late st Contact Info) Description 2012 Telephone [facility] Pediatric Hematology & Oncology - [facility] [address] [place] [address] Sanam Chisholm [address] [place] [address] Other Social History Tobacco Use Types Packs/Day Years Used Date Smoking Tobacco: Never Assessed Sex and Gender Information Value Date Recorded Sex Assigned at Not on file Gender Identity Male 08/30/2022 11:14 EDT Sexual Orientation Not on file documented as of this encounter Miscellaneous Notes * Telephone Encounter - Sanam Chisholm - 2012 1526 EDT Phone call from Jose Maria asking for a gas card b/c Ozzy has a clinic appointment. Jose Maria is short moneybecause he has been laid off from his job and unemployment has not yet started. Provided with a $25gas card and encouraged him to re- connect with [employer] assistance. He thoughtthat staff at the hospital needed to fill out paperwork for this, explained that it was incumbent on him to make contact with T to seek Medicaid mileage reimbursement. Sanam Chisholm, [employer] #[id number] Pediatric Promotion Officer documented in this encounter Plan of Treatment Upcoming Encounters Date Type Department Care Team (Latest Contact Info) Description 12/15/2023 15:20 EDT Appointment [facility] Pre-Surgical Testing [address], [place] [id number] 12/22/2023 13:10 EDT Hospital Encounter [facility] [place] [address] [place] [phone] Laina Pillai MD [address] [place] [phone] 12/22/2023 13:10 EDT - 12/22/2023 15:05 EDT Surgery [facility] OR [address] [place] [phone] Laina Pillai MD [address] [place] [phone] Left inguinal hernia repair with mesh. [[id number] (CPT??)] Scheduled Procedures Name Priority Associated Diagnoses Date/Ti me REPAIR, HERNIA, INGUINAL, REDUCIBLE, WITHOUT HISTORY OF PRIOR REPAIR, AGE 5 YEARS OR OLDER Non-recurrent unilateral inguinal hernia without obstruction or gangrene 12/22/2023 13:10 EDT documented as of this encounter Visit Diagnoses Not on filedocumented in this encounter Care Teams Coat Feller Relationship Specialty Start Date End Date Sabrina Shukla MD [address] [place] [phone] PCP - General 01/01/12 documented as of this encounter
--- OUTSIDE RECORDS SUMMARY | 2023-12-06 18:32 | XMS_ITS | Encounter Summary ---
Author Organization [facility] Address [address] [place] [address] Care Team Providers Care Material Processor Name Role Phone Sabrina Shukla MD Primary Care Provider Reason for Referral * (Routine) - Closed Specialty Diagnoses / Procedures Referred By Contac t Referred To Contact Aaron Gamez MD [address] [place] [address] Referral ID Status Reason Start Date Expiration Date V isits Requested Visits Authorized Closed Specialty Services Required 01/10/2016 1 1 Comments Please make an appointment with your physician in 2 week(s). Call your physician immediately if you have any fevers greater than 102.5, drainage from you wound that is not clear or looks infected, persistent bleeding, increasing abdominal pain, problems urinating, or persistent nausea/vomiting. * (Routine) - Closed Specialty Diagnoses / Procedures Referred By Contac t Referred To Contact Aaron Gamez MD [address] [address] Referral ID Status Reason Start Date Expiration Date V isits Requested Visits Authorized Closed Specialty Services Required 01/10/2016 1 1 Comments We are currently collecting quality data on patients having surgery. You may receive a phone call, email, and/or letter about your surgery asking you a series of follow up questions to evaluate specifics aspects of your care. Thank you for your participation. Encounter Details Date Type Department Care Team (Late st Contact Info) Description 01/10/2016 6:04 EDT - 01/10/2016 12:58 EDT Hospital Encounter [facility] Perioperative Services- [address] [phone] Bubba Moreno MD [address] [facility], [address] [place] [address] Right inguinal hernia; Umbilical hernia without obstruction and without gangrene Discharge Disposition: Home or Self Care Social History Tobacco Use Types Packs/Day Years Used Date Smoking Tobacco: Never Smokeless Tobacco: Never Sex and Gender Information Value Date Recorded Sex Assigned at Not on file Gender Identity Male 08/30/2022 11:14 EDT Sexual Orientation Not on file documented as of this encounter Last Filed Vital Signs Vital Sign Reading Time Taken Comments Blood Pressure 120/82 01/10/2016 1230 EDT Pulse - - Temperature 36 ??C (96.8 ??F) 01/10/2016 1230 EDT Respiratory Rate 20 01/10/2016 1230 EDT Oxygen Saturation 93% 01/10/2016 1230 EDT Inhaled Oxygen Concentration - - Weight 90.7 kg (200 lb) 01/08/2016 1304 EDT Height 182.9 cm (6') 01/08/2016 1304 EDT Body Mass Index 27.12 01/08/2016 1304 EDT documented in this encounter Discharge Diagnoses Diagnosis K40.90 Unilateral inguinal hernia, without obstruction or gangrene, not specified as recurrent-K40.90[ICD-10-CM] K42.9 Umbilical hernia without obstruction or gangrene-K42.9[ICD-10-CM] documented in this encounter Medications at Time of Discharge Medication Sig Dispensed Refills Start Date End Date acetaminophen (TYLENOL) 500 mg tablet Take 2 Tabs by mouth every 6 hours as needed for Pain. 01/10/2016 COQ10, UBIQUINOL, ORAL Take 25 mg by mouth daily. HYDROmorphone (DILAUDID) 2 mg tablet Take 1 Tab by mouth every 4 hours. Daily Max: 12 mg 15 Tab 01/10/2016 documented as of this encounter Ordered Prescriptions Prescription Sig Dispensed Refills Start Date End Da te acetaminophen (TYLENOL) 500 mg tablet Take 2 Tabs by mouth every 6 hours as needed for Pain. 01/10/2016 HYDROmorphone (DILAUDID) 2 mg tablet Take 1 Tab by mouth every 4 hours. Daily Max: 12 mg 15 Tab 01/10/2016 documented in this encounter Discharge Disposition Disposition Code Departure Means Destination Home or Self Care documented in this encounter Progress Notes * Nataliia Bragg RN - 01/08/2016 1316 EDT Jose Maria Reddy has been instructed as follows regarding medication administration for the day of the scheduled procedure. Date of Surgery: Instructions for Taking Medications Day of Surgery Medication Sig Last Dose Hold DOS Take DOS COQ10, UBIQUINOL, ORAL Take 25 mg by mouth daily. yes documented in this encounter H&P Notes * Aaron Gamez MD - 01/10/2016 0707 EDT The preoperative history and physical which was performed within 30 days of this procedure has been reviewed and the clinically appropriate elements of the physical examination have been repeated. There are no changes to the documented history and physical or if so such changes are documented below Aaron Gamez MD 01/10/2016 7:07 0962 Source Note - Bubba Moreno MD - 12/30/2015 16:50 EDT Subjective: Patient ID: Jose Maria Reddy [...] Allergies Allergen Reactions ??? Apples [Apple] ??? [place] ROS - See HPI A 12 system [...] in this encounter. documented in this encounter OR Notes * OR Surgeon - Bubba Moreno MD - 01/10/2016 1258 EDT OPERATIVE REPORT SERVICE DATE: 01/10/2016 PREOPERATIVE DIAGNOSES: 1. Right inguinal hernia. 2. Umbilical hernia. POSTOPERATIVE DIAGNOSES: 1. Right indirect sliding inguinal hernia. 2. Umbilical hernia. PROCEDURE: 1. Repair of indirect sliding right inguinal hernia with mesh. 2. Umbilical hernia repair with mesh. SURGEON: Bubba Moreno MD, FACS FLOORING SALES MANAGER: Aaron Gamez MD ANESTHESIA: General LMA. INDICATIONS: This gentleman presented with large chronic indirect hernia on the right side. It was uncomfortable for him and he had to push it in for comfort relief. He wished to have this repaired. He also had a moderate-sized umbilical hernia that he wished to have it repaired as that was becoming uncomfortable as well. FINDINGS: There was a large indirect sliding hernia on the right side with the appendix and cecum as the sliding components posterolaterally on the hernia sac. There was also preperitoneal fat herniating with the sac. There was no direct component or femoral component. There was a moderate-sized umbilical hernia with the fascial defect measuring approximately 2 cm in diameter. NARRATIVE: The patient was taken to the operating room on 01/10/2016, placed on the operating tablein the supine position. A complete WHO checklist was performed. The right inguinal area and the umbilical area, which were previously marked, were shaved with clippers, prepped with ChloraPrep and draped in the usual fashion. He received preoperative antibiotics and SCDs were placed prior to induction of LMA anesthesia. We started with the right inguinal hernia first. We infiltrated the area with25 mL of a mixture of 0.5% Marcaine, 1% lidocaine and saline; 10 mL of this was used for an ilioinguinal nerve block and the remainder as a field block. An incision was made beginning at the pubic tub ercle, extending laterally for approximately 6 to 7 cm parallel to the inguinal ligament and carried sharply down through Clemencia fascia to the aponeurosis of the external oblique, which was split in the direction of its fibers through the external ring. There were some chronic adhesions of the hernia sac to the cremaster and adhesions of the cremaster to the aponeurosis consistent with chronic hernia. A self-retaining retractor was used to facilitate exposure. The cord was freed from the underlying floor and encircled with a Sumanth drain. It was obvious that we had a very large complex indirect hernia sac with some evidence of some chronic inflammation consistent with repeated episodes of p artial incarceration. The hernia sac was dissected free from the cord structures using blunt dissection and cautery. This was a tedious dissection. We opened into the sac to facilitate the dissectionand it was clear that we had a sliding hernia with the appendix and cecum forming the posterolateral wall of the hernia sac. The appendix and cecum were dissected free and returned to the peritoneal cavity. Preperitoneal fat was also in there and this was dissected free from the sac. There was a defect in the sac posterolaterally where the sliding component and this was closed and the hernia sac closed with a 0 silk suture in a pursestring fashion deep to the internal ring. The redundant sac was then excised and the edges of the cut edge of the sac were oversewn with another 2-0 silk to control any oozing from the edges. This provided a good closure of the peritoneum. We next inspected are cord to be sure there was no injury to the cord structures itself to the vas, and these were intact.We had preserved the ilioinguinal nerve throughout this as well. We controlled any bleeders in the c remaster using cautery and ties of 3-0 Vicryl. Some redundant preperitoneal fat, which was also herniating, was dissected free and 3 or 4 of these pieces were ligated at their base, excised and discarded. We did not send any specimens. The bases of these were ligated with 3-0 Vicryl. Satisfied thatwe had completely removed all the herniating portions, we then narrowed the internal ring by closing the conjoined area to the inguinal ligament medial to the cord using 2 separate 2-0 Prolene sutures. An onlay patch of polypropylene was then fashioned with tails cut to encircle the cord. This was tacked in place at the pubic tubercle medially, along the inguinal ligament laterally with the tailsof the mesh sutured to each other and the inguinal ligament and we also tacked onto the anterior surface of the internal oblique aponeurosis with care to avoid injury to the neurovascular bundles. Weused interrupted 2-0 Prolene sutures for this. We inspected our mesh, it lay flat and in good position. The internal ring was not compromised. There was no evidence of any problems. We then closed the aponeurosis of the external oblique over the cord with a running 3-0 Vicryl. The aponeurosis of the external oblique was closed with interrupted 4-0 Vicryl and the skin was closed with subcuticular 4-0 Monocryl with Steri-Strips and a sterile gauze and Tegaderm dressing applied. We next approached the umbilical hernia. This was infiltrated with 20 mL of a mixture of 0.5% Marcaine, 1% lidocaine and saline around the defect. A transverse incision was made over the upper edge of the umbilicus where the hernia bulge was and this was carried sharply down to the hernia sac, which was dissected free by blunt dissection and cautery down to the fascial ring. The sac was sharply incised along the fascial ring and the contents returned to the abdominal cavity, including the sac. We freed up under the edges of the fascia to create a subfascial plane and used a small Ventralex patch, which we placed in a fascial plane tacking it in place with transfascial sutures in the midline both caudally and cephalad. We used 0 Prolene for this. The defect was then closed over the mesh, incorporating the mesh with the sutures with running 0 Ethibond suture. This created a nice firm repair. There was no evidence of problems. We tacked the umbilical dermis back down to the deep fascia with a 4-0 Vicryl suture. The skin was closed with 4-0 Monocryl with Steri-Strips and sterile gauze and Tegaderm dressing applied. ESTIMATED BLOOD LOSS: Minimal. FLUIDS: Received approximately 1 L of crystalloid. URINE OUTPUT: We did not monitor. SPECIMENS: None. I was present and scrubbed for the entire procedure. DISPOSITION: He was transferred to the postanesthesia care unit in stable and satisfactory condition. Unless otherwise noted, there were no complications, no blood loss, no cultures obtained, no specimens removed, and no drains retained. Bubba Moreno MD FACS 12 52 PM / Bubba Moreno MD FACS pn Confirmation: [id number] Dictation ID: [id number] cc: Sabrina Gamez MD documented in this encounter Miscellaneous Notes * Anesthesia Post-Eval - Jose Fish MD - 01/10/2016 1258 EDT Post Anesthesia Evaluation Note Date of Service: 01/10/2016 Jose Maria Reddy, a 55 y.o. year old male has received General Anesthesia today. He has been evaluated, assessed and discharged from anesthesia care with stable cardiorespiratory function and alert mental status. The last set of recorded vital signs and pain rating were reviewed: Temp: 36 ??C (96.8 ??F), Heart Rate: 82 BPM, BP: 120/82, Resp: 20, SpO2: 93 %,Numeric Pain Level (Scale 1-10): 0 (denies) Jose Maria Reddy participated in this evaluation unless otherwise noted. His pain, nausea and vomiting have been managed and his body temperature and fluid balance have been restored. Additional monitoring and assessment needs have been addressed. If present, any postoperative events are documented below. Jose Fish MD 01/10/2016 13:40 * Brief Op Note - Aaron Gamez MD - 01/10/2016 1029 EDT Brief Operative Note Department of General Surgery Surgeon: Dr. Bubba Moreno MD FACS Dance Instructor: Aaron Gamez MD Preoperative diagnosis / Indication: Right Inguinal Hernia, Umbilical Hernia Postoperative diagnosis: Right Indirect Sliding Inguinal Hernia, Umbilical Hernia Procedure: 1. Right Inguinal Hernia Repair with Mesh 2. Umbilical Hernia Repair with Mesh CPT Code: 25736, 51758 Anesthesia: General endotracheal anesthesia Findings: Large chronic indirect sliding hernia with appendix, cecum , and omentum contents. All hernia sac contents reduced into peritoneal cavity. All relevant anatomy identified and preserved. Fluids: 1000 cc crystalloid Estimated blood loss: 50 cc Urine output: no catherine Specimens: None (hernia sac discarded) Drains/Packs/Foreign materials retained: Bard Soft Mesh (inguinal) , Ventralex ST hernia patch (umbilicus) Complications: None immediate Condition: Good or Stable Disposition: awakened from anesthesia, extubated and taken to the recovery room in a stable condition, having suffered no apparent untoward event. Postoperative Plan: Home from PACU. Dilaudid, Tylenol as needed for pain. F/u with Dr. Moreno in clinic. Aaron Gamez MD 0962 documented in this encounter Plan of Treatment Upcoming Encounters Date Type Department Care Team (Latest Contact Info) Description 12/15/2023 15:[address] [facility] Pre-Surgical Testing [address] [place] [phone] 12/22/2023 13:10 EDT Hospital Encounter [facility] OR [address] [place] [phone] Laina Pillai MD [address] [place] [phone] 12/22/2023 13:10 EDT - 12/22/2023 15:05 EDT Surgery [facility] OR [address] [place] [phone] Laina Pillai MD [address] [place] [phone] Left inguinal hernia repair with mesh. [67672 (CPT??)] Scheduled Procedures Name Priority Associated Diagnoses Date/Ti me REPAIR, HERNIA, INGUINAL, REDUCIBLE, WITHOUT HISTORY OF PRIOR REPAIR, AGE 5 YEARS OR OLDER Non-recurrent unilateral inguinal hernia without obstruction or gangrene 12/22/2023 13:10 EDT Scheduled Referrals Name Type Priority Associated Diagnoses Order Schedule PROVIDER FOLLOW-UP INSTRUCTIONS Outpatient Referral Routine Ordered: 01/10/2016 PROVIDER FOLLOW-UP INSTRUCTIONS Outpatient Referral Routine Ordered: 01/10/2016 documented as of this encounter Procedures Procedure Name Priority Date/Time Associated Diagnosis Comments IMPLANT RECORD - SCANNED 01/22/2016 8:33 EDT IMPLANT RECORD - SCANNED 01/14/2016 12:00 EDT ECG REPORT - SCANNED 01/14/2016 12:00 EDT documented in this encounter Results * IMPLANT RECORD - SCANNED (01/22/2016 8:33 EDT) 01/22/2016 8:33 EDT Scan 2 Chief Cardiopulmonary Technologist PROCEDURE/MINOR LAURA GICAL ORDERABLES * ECG REPORT - SCANNED (01/14/2016 12:00 EDT) 01/14/2016 12:0 0 EDT Scan 2 Chief Cardiopulmonary Technologist PROCEDURE/MINOR LAURA GICAL ORDERABLES * IMPLANT RECORD - SCANNED (01/14/2016 12:00 EDT) 01/14/2016 12:0 0 EDT Scan 2 Chief Cardiopulmonary Technologist PROCEDURE/MINOR LAURA GICAL ORDERABLES documented in this encounter Visit Diagnoses Diagnosis Right inguinal hernia Inguinal hernia without mention of obstruction or gangrene, unilateral or unspecified, (not specified as recurrent) Umbilical hernia without obstruction and without gangrene Right inguinal hernia Inguinal hernia without mention of obstruction or gangrene, unilateral or unspecified, (not specified as recurrent) Umbilical hernia without obstruction and without gangrene Non-recurrent unilateral inguinal hernia without obstruction or gangrene documented in this encounter Administered Medications Inactive Administered Medications - up to 3 most recent administrations Medication Order MAR Action Action Date Dose Rate Site acetaminophen (TYLENOL) tablet 1,000 mg 1,000 mg, oral, EVERY 6 HOURS PRN, Starting on Wed01/10/16 at 1015, Until Wed01/10/16 at 1508, Pain, Fever, Fever especially in neuro patients, Routine, Recovery (only) atropine 0.1 mg/mL syringe 0.5 mg 0.5 mg, intravenous, PRN, Starting on Wed01/10/16 at 1015, Until Wed01/10/16 at 1508, Symptomatic HR < 50, Routine, Recovery (only) ceFAZolin (ANCEF) syringe 2 g 2 g, intravenous, Administer over 10 Minutes, PRE-OP ONCE, 1 dose, On Wed01/10/16 at 0700, Routine, Pre-Op DOS Rx Approved Given by Other 01/10/2016 7:51 EDT 2 g diphenhydrAMINE (BENADRYL) injection 6.25 mg 6.25 mg, intravenous, PRN, 2 doses, Starting on Wed01/10/16 at 1015, Until Wed01/10/16 at 1508, nausea, Routine, Recovery (only) fentaNYL citrate (PF) 50 mcg/mL injection 25-100 mcg 25-100 mcg, intravenous, EVERY 30 MINUTES PRN, Starting on Wed01/10/16 at 1019, Until Wed01/10/16 at 1508, Pain, Routine, Recovery (only) HYDROmorphone (PF) (DILAUDID) 1 mg/mL injection 0.2-1 mg 0.2-1 mg, intravenous, EVERY 10 MINUTES PRN, Starting on Wed01/10/16 at 1015, Until Wed01/10/16 at 1508, Pain, Routine, Recovery (only) ibuprofen (MOTRIN) tablet 800 mg 800 mg, oral, PRN, 1 dose, Starting on Wed01/10/16 at 1015, Until Wed01/10/16 at 1508, Pain, Routine, Recovery (only) lactated ringers (LR) infusion at 75 mL/hr, intravenous, CONTINUOUS, Starting on Wed01/10/16 at 1045, Until Wed01/10/16 at 1508, Routine, Recovery (only) lactated ringers (LR) infusion 25 mL/hr, intravenous, CONTINUOUS, Starting on Wed01/10/16 at 0700, Until Wed01/10/16 at 1508, Routine, Pre-Op DOS Rx Approved New Bag 01/10/2016 6:57 EDT 25 mL/hr 25 mL/hr nalOXone (NARCAN) injection 0.2 mg 0.2 mg, intravenous, PRN, Starting on Wed01/10/16 at 1015, Until Wed01/10/16 at 1508, Opioid Reversal, Routine, Recovery (only) ondansetron (PF) (ZOFRAN) injection 2 mg 2 mg, intravenous, PRN, 1 dose, Starting on Wed01/10/16 at 1015, Until Wed01/10/16 at 1508, Nausea, Vomiting, Routine, Recovery (only) oxyCODONE (ROXICODONE) immediate release tablet 5-10 mg 5-10 mg, oral, PRN, 2 doses, Starting on Wed01/10/16 at 1015, Until Wed01/10/16 at 1508, Pain, Routine, Recovery (only) documented in this encounter Historical Medications * This list may reflect changes made after this encounter. Medication Sig Dispensed Refills Start Date End Date COQ10, UBIQUINOL, ORAL Take 25 mg by mouth daily. added in this encounter Active and Recently Administered Medications Times are shown in EDT. Scheduled Medication Order 01/08/2016 01/09/2016 01/10/2016 ceFAZolin (ANCEF) syringe 2 g (COMPLETED) 2 g, intravenous, Administer over 10 Minutes, PRE-OP ONCE, 1 dose, On Wed01/10/16 at 0700, Routine, Pre-Op DOS Rx Approved 0751 (Given by Other - Provider: Gayle Flores RN - Comment: Given by Live Cervantes MD, anesthesia) Continuous Medication Order 01/08/2016 01/09/2016 01/10/2016 lactated ringers (LR) infusion at 75 mL/hr, intravenous, CONTINUOUS, Starting on Wed01/10/16 at 1045, Until Wed01/10/16 at 1508, Routine, Recovery (only) 1043 (Continued Infu ramón - Provider: Amina Brennan RN)1304 (Completed - Provider: Amina Brennan RN) lactated ringers (LR) infusion 25 mL/hr, intravenous, CONTINUOUS, Starting on Wed01/10/16 at 0700, Until Wed01/10/16 at 1508, Routine, Pre-Op DOS Rx Approved 0657 ([facility] ider: Lindsey Guy RN)1043 (Completed - Provider: Amina Brennan RN) PRN Medication Order 01/08/2016 01/09/2016 01/10/2016 acetaminophen (TYLENOL) tablet 1,000 mg 1,000 mg, oral, EVERY 6 HOURS PRN, Starting on Wed01/10/16 at 1015, Until Wed01/10/16 at 1508, Pain, Fever, Fever especially in neuro patients, Routine, Recovery (only) atropine 0.1 mg/mL syringe 0.5 mg 0.5 mg, intravenous, PRN, Starting on Wed01/10/16 at 1015, Until Wed01/10/16 at 1508, Symptomatic HR < 50, Routine, Recovery (only) diphenhydrAMINE (BENADRYL) injection 6.25 mg 6.25 mg, intravenous, PRN, 2 doses, Starting on Wed01/10/16 at 1015, Until Wed01/10/16 at 1508, nausea, Routine, Recovery (only) fentaNYL citrate (PF) 50 mcg/mL injection 25-100 mcg 25-100 mcg, intravenous, EVERY 30 MINUTES PRN, Starting on Wed01/10/16 at 1019, Until Wed01/10/16 at 1508, Pain, Routine, Recovery (only) HYDROmorphone (PF) (DILAUDID) 1 mg/mL injection 0.2-1 mg 0.2-1 mg, intravenous, EVERY 10 MINUTES PRN, Starting on Wed01/10/16 at 1015, Until Wed01/10/16 at 1508, Pain, Routine, Recovery (only) ibuprofen (MOTRIN) tablet 800 mg 800 mg, oral, PRN, 1 dose, Starting on Wed01/10/16 at 1015, Until Wed01/10/16 at 1508, Pain, Routine, Recovery (only) nalOXone (NARCAN) injection 0.2 mg 0.2 mg, intravenous, PRN, Starting on Wed01/10/16 at 1015, Until Wed01/10/16 at 1508, Opioid Reversal, Routine, Recovery (only) ondansetron (PF) (ZOFRAN) injection 2 mg 2 mg, intravenous, PRN, 1 dose, Starting on Wed01/10/16 at 1015, Until Wed01/10/16 at 1508, Nausea, Vomiting, Routine, Recovery (only) oxyCODONE (ROXICODONE) immediate release tablet 5-10 mg 5-10 mg, oral, PRN, 2 doses, Starting on Wed01/10/16 at 1015, Until Wed01/10/16 at 1508, Pain, Routine, Recovery (only) documented in this encounter Orders Medications Ordered That Wilder ht Not Have Been Administered Count Last Ordered Date First Ordered Date acetaminophen (TYLENOL) tablet 1,000 mg 1 0 01/10/2016 atropine 0.1 mg/mL syringe 0.5 mg 1 016 diphenhydrAMINE (BENADRYL) i njection 6.25 mg 1 01/10/2016 fentaNYL citrate (PF) 50 mcg /mL injection 25-100 mcg 1 01/10/2016 HYDROmorphone (PF) (DILAUDID ) 1 mg/mL injection 0.2-1 mg 1 01/10/2016 ibuprofen (MOTRIN) tablet 800 mg 1 01/10/20 16 lactated ringers (LR) infusion 1 01/10/2016 nalOXone (NARCAN) injection 0.2 mg 1 2015 ondansetron (PF) (ZOFRAN) injection 2 mg 1 01/10/2016 oxyCODONE (ROXICODONE) immed iate release tablet 5-10 mg 1 01/10/2016 Diet Count Last Ordered Date First Orde red Date DISCHARGE DIET 3 01/10/2016 Nursing Count Last Ordered Date First Orde red Date ACTIVITY INSTRUCTIONS 1 01/10/[address] SEQUENTIAL COMPRESSION DEVICE 1 01/09 WOUND CARE INSTRUCTIONS 1 01/10/2016 Admission Count Last Ordered Date First Orde red Date STATUS: OUTPATIENT SURGICAL OP BED/SERVICES 1 01/10/2016 Transfer Count Last Ordered Date First Orde red Date NOTIFY PPS PACU PATIENT DISCHARGE 1 016 NOTIFY PPS PATIENT ARRIVAL IN PACU 1 2015 Discharge Count Last Ordered Date First Orde red Date DISCHARGE PATIENT 1 01/10/2016 Legal Count Last Ordered Date First Orde red Date MISCELLANEOUS DISCHARGE INSTRUCTIONS 1 01/2016 documented in this encounter Care Teams Material Processor Relationship Specialty Start Date End Date Sabrina Shukla MD [address] [facility] [place] [address] PCP - General 01/01/12 documented as of this encounter
--- OUTSIDE RECORDS SUMMARY | 2023-12-06 18:32 | XMS_ITS | Encounter Summary ---
Author Organization [facility] Address [address] [place] [address] Care Team Providers Care Critical Care Clinical Nurse Specialist Name Role Phone Sabrina Shukla MD Primary Care Provider [phone] Reason for Visit * Reason Comments Post-OP Follow Up 1st p/o Umbilical/In guinal Encounter Details Date Type Department Care Team (Late st Contact Info) Description 02/10/2016 14:30 EDT Post-op Visit [facility] General Surgery - [address] [id number] Bubba Moreno MD [address] [facility], [address] [place] [phone] S/P inguinal hernia repair, follow-up exam (Primary Dx); S/P umbilical hernia repair, follow-up exam Social History Tobacco Use Types Packs/Day Years Used Date Smoking Tobacco: Never Smokeless Tobacco: Never Sex and Gender Information Value Date Recorded Sex Assigned at Not on file Gender Identity Male 08/30/2022 11:14 EDT Sexual Orientation Not on file documented as of this encounter Progress Notes * Bubba Moreno MD - 02/10/2016 1430 EDT S/P Repair of right inguinal hernia and umbilical hernia S: He is feeling well. No pain now. No problems with the incision. No fever, chills or other problems. anxious to get back to full activity now over 4 weeks from surgery. O; He looks well. Abdomen is soft and non-tender. The incisions are healing well. There is no discoloration. There is a prominent healing ridge at both sites. Genitalia are normal. A: Recovering well. Now without problems P: He will avoid lifting more than 20 pounds for another 2 weeks then will increase activity as tolerated. I will see him back as needed. Bubba Moreno MD documented in this encounter Plan of Treatment Upcoming Encounters Date Type Department Care Team (Latest Contact Info) Description 12/15/2023 15:20 EDT Appointment [facility] Pre-Surgical Testing [address] [place] [phone] 12/22/2023 13:10 EDT Hospital Encounter [facility] OR [address] [place] [address] Laina Pillai MD [address] [place] [phone] 12/22/2023 13:10 EDT - 12/22/2023 15:05 EDT Surgery [facility] OR [address] [place] [address] Laina Pillai MD [address] [place] [phone] Left inguinal hernia repair with mesh. [45200 (CPT??)] Scheduled Procedures Name Priority Associated Diagnoses Date/Ti me REPAIR, HERNIA, INGUINAL, REDUCIBLE, WITHOUT HISTORY OF PRIOR REPAIR, AGE 5 YEARS OR OLDER Non-recurrent unilateral inguinal hernia without obstruction or gangrene 12/22/2023 13:10 EDT documented as of this encounter Visit Diagnoses Diagnosis S/P inguinal hernia repair, follow-up exam- Primary Follow-up examination, following other surgery S/P umbilical hernia repair, follow-up exam Follow-up examination, following other surgery Non-recurrent unilateral inguinal hernia without obstruction or gangrene documented in this encounter Care Teams Critical Care Clinical Nurse Specialist Relationship Specialty Start Date End Date Sabrina Shukla MD [address] [place] [phone] PCP - General 01/01/12 documented as of this encounter
--- OUTSIDE RECORDS SUMMARY | 2023-12-06 18:32 | XMS_ITS | Encounter Summary ---
Author Organization [facility] Address [address] [place] [address] Care Team Providers Care Dressing Machine Operator Name Role Phone Sabrina Shukla MD Primary Care Provider [phone] Reason for Visit * Reason Comments Leg Problem Encounter Details Date Type Department Care Team (Late st Contact Info) Description 01/07/2021 15:00 EDT Walk-In [address] [phone] [place] [address] [place] [address] [address] [place], [place] [phone] Wound of right lower extremity, initial encounter (Primary Dx) Social History Tobacco Use Types Packs/Day Years Used Date Smoking Tobacco: Never Smokeless Tobacco: Never Interpersonal Safety Answer Date Record ed Physically Hurt Never 12/05/2019 Verbally Threaten Not on file 12/05/2019 Sex and Gender Information Value Date Recorded Sex Assigned at Not on file Gender Identity Male 08/30/2022 11:14 EDT Sexual Orientation Not on file documented as of this encounter Last Filed Vital Signs Vital Sign Reading Time Taken Comments Blood Pressure 123/72 01/07/2021 1526 EDT Pulse 114 01/07/2021 1526 EDT Temperature 36.6 ??C (97.9 ??F) 01/07/2021 1526 EDT Respiratory Rate 20 01/07/2021 1526 EDT Oxygen Saturation 96% 01/07/2021 1526 EDT Inhaled Oxygen Concentration - - Weight - - Height - - Body Mass Index - - documented in this encounter Patient Instructions * Patient Instructions* Sabrina Quinteros MD - 01/07/2021 15:00 EDT Images from the original note were not included. You were seen today for wound on your right lainez. We will treat with antibiotics for this. Continue treatment of your leg wound. [facility] Patient Instructions Wound Check: Care Instructions Your Care Instructions People have wounds that need care for many reasons. You may have a cut that needs care after surgery. You may have a cut or puncture wound from an accident. Or you may have a wound because of a condition like diabetes. Whatever the cause of your wound, there are things you can do to care for it at home. Your doctor may also want you to come back for a wound check. The wound check lets the doctor know how your wound is healing and if you need more treatment. Follow-up care is a abbott part of your treatment and safety. Be sure to make and go to all appointments, and call your doctor if you are having problems. It's also a good idea to know your test resultsand keep a list of the medicines you take. How can you care for yourself at home? ?? If your doctor told you how to care for your wound, follow your doctor's instructions. If you did not get instructions, follow this general advice: ? You may cover the wound with a thin layer of petroleum jelly, such as Vaseline, and a nonstick bandage. ? Apply more petroleum jelly and replace the bandage as needed. ?? Keep the wound dry for the first 24 to 48 hours. After this, you can shower if your doctor okaysit. Pat the wound dry. ?? Be safe with medicines. Read and follow all instructions on the label. ? If the doctor gave you a prescription medicine for pain, take it as prescribed. ? If you are not taking a prescription pain medicine, ask your doctor if you can take an tmyn-ogg-eevbspq medicine. ?? If your doctor prescribed antibiotics, take them as directed. Do not stop taking them just because you feel better. You need to take the full course of antibiotics. ?? If you have stitches, do not remove them on your own. Your doctor will tell you when to come back to have them removed. ?? If you have Steri-Strips, leave them on until they fall off. ?? If possible, prop up the injured area on a pillow anytime you sit or lie down during the next 3 days. Try to keep it above the level of your heart. This will help reduce swelling. When should you call for help? Call your doctor now or seek immediate medical care if: ? You have new pain, or the pain gets worse. ? The skin near the wound is cold or pale or changes color. ? You have tingling, weakness, or numbness near the wound. ? The wound starts to bleed, and blood soaks through the bandage. Oozing small amounts of bloodis normal. ? You have symptoms of infection, such as: ? Increased pain, swelling, warmth, or redness. ? Red streaks leading from the wound. ? Pus draining from the wound. ? A fever. Watch closely for changes in your health, and be sure to contact your doctor if: ? You do not get better as expected. Where can you learn more? Go to [email or web address].net/Party [employer] or log into your [employer] account at https://[email or web address].[employer].org Enter P342 in the search box to learn more about Wound Check: Care Instructions. Current as of: October 26, 2018?Content Version: 12.6 ?? 4180-1186 [employer]. Care instructions adapted under license by [facility]. If you have questions about a medical condition or this instruction, always ask your healthcare professional. [employer] disclaims any warranty or liability for your use of this information. documented in this encounter Ordered Prescriptions Prescription Sig Dispensed Refills Start Date End Da te doxycycline (VIBRA-TABS) 100 mg tablet Take 1 Tablet by mouth 2 times daily for 7 days. 14 Tablet 01/07/2021 01/14/2021 documented in this encounter Progress Notes * Alicia Johnson LPN - 01/07/2021 1500 EDT LMTCB * Maria Victoria Austin RN - 01/07/2021 1500 EDT LMOMTCB * Muriel Paris RN - 01/07/2021 1500 EDT CC/HPI: Log rolled against leg 2 wks ago. Had swelling & applied arnica salt & other topical remedies. Redness around scab. Denies drainage or fevers. Covid Screening: In the last 72 hours, has the patient had: New or unusual cough, shortness of breath, new nasal congestion, sore throat, fever, chills, body aches, or new loss of taste or smell without a reasonable alternative diagnosis*? (If yes, assign patient to ARC schedule) no In the past 14 days, has the patient had a confirmed close Covid exposure (<6ft for > 15mins in 24hr period)? no In the past 14 days, has the patient returned from international travel? no Is the patient fully Covid vaccinated? (If close exposure or international travel but fully vaccinated, remains NRC. If close exposure or international travel and unvaccinated, assign to ARC) no *may be determined by RN or in discussion with available provider (DIRECTOR OF BUSINESS SERVICES's and CCA's can defer to Charge Nurse to complete triage when appropriate) PCP: Sabrina Shukla * Sabrina Quinteros MD - 01/07/2021 1500 EDT [facility] Chief Complaint(s): Chief Complaint Patient presents with ??? Leg Problem Assessment & Plan: 1. Wound of right lower extremity, initial encounter New Prescriptions DOXYCYCLINE (VIBRA-TABS) 100 MG TABLET Take 1 Tablet by mouth 2 times daily for 7 days. Suspect this is full-thickness ulceration following traumatic hematoma. Unable to fully assess depth due to eschar is present. Suggested recommendation to debride eschar but patient reports it is toopainful, he does not want to bleed or drain, and would like to just leave it as is and it will take care of itself. He has concerns about being unable to do any frequent dressing changes and inability to keep the area dry. If the area was debrided it would require something such as Mepilex foam as a regular treatment that he would have to change especially if it is wet or soiled. Based on patient's preference we decided to treat with antibiotic, and allow patient to gently remove some of the skin with gauze after he showers. He may either leave the room dry and covered, or ideally could use Vaseline or bacitracin over the wound and cover with Telfa and Tegaderm to helpsoften eschar. Patient voices understanding with this plan. He agrees to follow-up with his symptoms are worsening, if he develops seems to be an abscess or collection of fluid, or if the redness is worsening. HPI: Log rolled against leg 2 wks ago. Reports it open the skin just a little bit, states there was not any chance there is a foreign body in it. Had cleaned it out and been using bacitracin and seem to be healing but then over the last week it is gotten more red and opened and started draining. 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 He reports that in order to get dried out he started applying Arnica, salt. He is currently concerned it is infected. He also has concerns about any frequent dressing changes and states he will unable to keep the dressing clean and dry for any period of time. ROS: Review of Systems Constitutional: Negative for chills and fever. HENT: Negative. Respiratory: Negative for cough and shortness of breath. Gastrointestinal: Negative for diarrhea, nausea and vomiting. Musculoskeletal: Negative for myalgias. Objective: Vitals and nursing notes reviewed Examination: BP 123/72 Pulse (!) 114 Temp 36.6 ??C (97.9 ??F) (Temporal) Resp 20 SpO2 96% Physical Exam Constitutional: General: He is not in acute distress. Musculoskeletal: Right lower leg: No edema. Left lower leg: No edema. Skin: Comments: Right anterior lateral lainez with approximately 3 and half centimeter open wound ulcer with moderate eschar. Erythema and warmth in approximately 1 cm ring surrounding the ulceration with induration, without fluctuance. No drainage. There are some peeling skin around the area of erythema. Neurological: Mental Status: He is alert. * Sabrina Quinteros MD - 01/07/2021 1500 EDT Attached media from the original note were not included. . documented in this encounter Plan of Treatment Upcoming Encounters Date Type Department Care Team (Latest Contact Info) Description 12/15/2023 15:20 EDT Appointment [facility] Pre-Surgical Testing [address] [place] [phone] 12/22/2023 13:10 EDT Hospital Encounter [facility] OR [address] [place], [place] [phone] Laina Pillai MD [address] [place] [phone] 12/22/2023 13:10 EDT - 12/22/2023 15:05 EDT Surgery [facility] OR [address] [place] [phone] Laina Pillai MD [address] [place] [phone] Left inguinal hernia repair with mesh. [23956 (CPT??)] Scheduled Procedures Name Priority Associated Diagnoses Date/Ti me REPAIR, HERNIA, INGUINAL, REDUCIBLE, WITHOUT HISTORY OF PRIOR REPAIR, AGE 5 YEARS OR OLDER Non-recurrent unilateral inguinal hernia without obstruction or gangrene 12/22/2023 13:10 EDT documented as of this encounter Visit Diagnoses Diagnosis Wound of right lower extremity, initial encounter- Primary Non-recurrent unilateral inguinal hernia without obstruction or gangrene documented in this encounter Care Teams Dressing Machine Operator Relationship Specialty Start Date End Date Sabrina Shukla MD [address] [place] [phone] PCP - General 01/01/12 documented as of this encounter
--- OUTSIDE RECORDS SUMMARY | 2023-12-06 18:32 | XMS_ITS | Encounter Summary ---
Author Organization [facility] Address [address] [place] [address] Care Team Providers Care [employer] Utility Worker Name Role Phone Sabrina Shukla MD Primary Care Provider [phone] Reason for Visit * Reason Comments Hip Pain Left hip and Right k nee pain * Consult, Test and Treat (Routine) - Closed Specialty Diagnoses / Procedures Referred By Katarzyna jose Referred To Contact Orthopedic Surgery Diagnoses Right knee pain Sabrina Shukla MD [address] [place] [phone] [facility] Ortho Total Joint [address] [place] [address] Referral ID Status Reason Start Date Expiration Date Visits Re quested Visits Authorized [id number] Closed 1 1 Encounter Details Date Type Department Care Team (Late st Contact Info) Description 12/30/2016 8:00 EDT Office Visit [facility] [address] [place] [address] Demetrio Gregory MD [address] [place] [phone] Leg length inequality (Primary Dx) Discharge Disposition: Auto Discharge Social History Tobacco Use Types Packs/Day Years Used Date Smoking Tobacco: Never Smokeless Tobacco: Never Sex and Gender Information Value Date Recorded Sex Assigned at Not on file Gender Identity Male 08/30/2022 11:14 EDT Sexual Orientation Not on file documented as of this encounter Last Filed Vital Signs Vital Sign Reading Time Taken Comments Blood Pressure - - Pulse - - Temperature - - Respiratory Rate - - Oxygen Saturation - - Inhaled Oxygen Concentration - - Weight 90.7 kg (200 lb) 12/30/2016 0955 EDT Height 180.3 cm (5' 11) 12/30/2016 0955 EDT Body Mass Index 27.89 12/30/2016 0955 EDT documented in this encounter Discharge Diagnoses Diagnosis M25.861 Other specified joint disorders, right knee-M25.861[ICD-10-CM] M16.12 Unilateral primary osteoarthritis, left hip-M16.12[ICD-10-CM] documented in this encounter Discharge Disposition Disposition Code Departure Means Destination Auto Discharge documented in this encounter Progress Notes * Crystal Piña MD - 12/30/2016 0800 EDT SUBJECTIVE: Jose Maria Reddy is a 56-year-old male who presents to the joint clinic today with complaints of right knee and left hip pain. 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 He never had any difficulty with his left hip or right knee until last winter when he was skiing at [facility] and had difficulty going downhill without pain. He states that he had 2 right knee hyperextension injuries in the past, but again this had never bothered him until last winter. With regard to his left hip, his left hip has dull, achy pain and limited range of motion. His left leg is also roughly 1 inch shorter than his right leg and he wears a 3/4-inch heel lift in his shoes, which seems to help him. He has intermittent sharp left hip pain with increased activity. His right knee also has a dull ache in the anterior aspect of his knee and is sore all the time. He does experience some popping, but no catching or locking. He does get sharp knee pain with increased activities and downhill skiing. He states today that his knee and his hip pain are equal and one is not worse than the other. He drags his right foot and walks with a limp, but is not bothered by the pain daily. He has taken collagen, glucosamine, chondroitin, MSM, tumeric and black pepper, all of which helpedhim minimally except for the tumeric and the collagen, which he has noticed a great increase in reduction of pain. He has never had any formal physical therapy and has never had any injections in hiship or knee. Past medical, surgical, family history reviewed and per the intake sheet. SOCIAL HISTORY: He works as a cook and a nanny/household manager. He does not smoke or drink. REVIEW OF SYSTEMS: 10 points completed and as per the intake sheet. PHYSICAL EXAM: General: Alert and cooperative. Respiratory: Nonlabored, no audible wheezing. CV: No peripheral cyanosis and regular rate and rhythm per peripheral pulses. EXTREMITIES: Focused exam of the bilateral lower extremities: He walks with an abnormal gait and limps. There is a Trendelenburg gait present on the left lower extremity. He drags his right foot. There is an obvious leg length discrepancy. His left hip flexes to 120 degrees, externally and internally rotates a few degrees respectively. His right hip flexes to 120 degrees and externally rotates to 30 and internally rotates to 15. Both hips are nonpainful with range of motion. His right knee has a flexion contracture of 5 degrees and can flex to 130 degrees. He has point tenderness over the medial aspect of his joint line. No tenderness to palpation elsewhere in the knee. Senait's is negative on the right knee. Firm endpoints on Camron and posterior drawer bilateral knees. No pain with varus or valgus testing bilateral knees. No joint effusions bilaterally. No pain with patellar glide. Normal patellar excursion. IMAGING: Reviewed independently by myself and Dr Gregory of his left hip as well as right knee demonstrate fibrous dysplasia affecting his left hemipelvis and left femur. Mild superior medial joint space narrowing. On the right knee there is mild lateral compartment joint space narrowing. No joint space loss between the patellofemoral or medial compartment. No significant osteophyte formation. ASSESSMENT AND PLAN: Jose Maria Reddy is a 56-year-old male who presents with left hip pain and right knee pain, who has significant past medical history of fibrous dysplasia. At this time, he should consider getting a new shoe build up for roughly an inch on the left side. He was given a prescriptionfor this. This would likely offload his right knee where the majority of his knee pain is likely coming from. It was also discussed today activity modification to help with his left hip pain as dailyactivities do not bother him. He could consider no longer downhill skiing and focusing more on cross-country skiing and other aerobic activities. He should continue to take his homeopathic therapies as he sees benefit from. He should follow up with Dr Gregory as needed. The patient seen and examined with Dr Gregory. * Demetrio Gregory MD - 12/30/2016 0800 EDT Attestation statement: I saw and examined the patient with the resident/fellow. I agree with the findings and plan of care documented in the resident's/fellow's note. documented in this encounter Plan of Treatment Upcoming Encounters Date Type Department Care Team (Latest Contact Info) Description 12/15/2023 15:20 EDT Appointment [facility] Pre-Surgical Testing [address] [place], [place] [phone] 12/22/2023 13:10 EDT Hospital Encounter [facility] OR [address] [place] [address] Laina Pillai MD [address] [place] [phone] 12/22/2023 13:10 EDT - 12/22/2023 15:05 EDT Surgery [facility] OR [address] [place] [address] Laina Pillai MD [address] [place] [phone] Left inguinal hernia repair with mesh. [66323 (CPT??)] Scheduled Procedures Name Priority Associated Diagnoses Date/Ti me REPAIR, HERNIA, INGUINAL, REDUCIBLE, WITHOUT HISTORY OF PRIOR REPAIR, AGE 5 YEARS OR OLDER Non-recurrent unilateral inguinal hernia without obstruction or gangrene 12/22/2023 13:10 EDT documented as of this encounter Visit Diagnoses Diagnosis Leg length inequality- Primary Unequal leg length (acquired) Non-recurrent unilateral inguinal hernia without obstruction or gangrene documented in this encounter Historical Medications * This list may reflect changes made after this encounter. Medication Sig Dispensed Refills Start Date End Date [facility] by misc (non-drug; combo route) route. added in this encounter Orders General Supply Count Last Ordered Date First Or dered Date ORTHOPAEDIC SHOE, MODIFICATI ON, ADDIITON OR TRANSFER, NOS 1 12/30/2016 documented in this encounter Care Teams [employer] Utility Worker Relationship Specialty Start Date End Date Sabrina Shukla MD [address] [place] [phone] PCP - General 01/01/12 documented as of this encounter
--- OUTSIDE RECORDS SUMMARY | 2023-12-06 18:32 | XMS_ITS | Encounter Summary ---
Author Organization [facility] Address [address] [place] [address] Care Team Providers Care Type Soldering Machine Tender Name Role Phone Sabrina Shukla MD Primary Care Provider [phone] Reason for Visit * Reason Onset Date Comments Appointment Related 04/11/2020 Encounter Details Date Type Department Care Team (Late st Contact Info) Description 04/11/2020 Telephone [facility] Total Joint Program - [address] [place], [place] [phone] Hilda Hagen NP [address] [place] [address] Appointment Related Social History Tobacco Use Types Packs/Day Years [...] encounter Miscellaneous Notes * Telephone Encounter - Ambar Ruiz MA - 04/11/2020 1255 EST Unable to reach patient to reschedule appointment. AMBAR RUIZ MA documented in this encounter Plan of Treatment Upcoming Encounters Date Type Department Care Team (Latest Contact Info) Description 12/15/2023 15:20 EDT Appointment [facility] Pre-Surgical Testing [address] [place] [address] 12/22/2023 13:10 EDT Hospital Encounter [facility] [place] [address] [place] [phone] Laina Pillai MD [address] [place] [phone] 12/22/2023 13:10 EDT - 12/22/2023 15:05 EDT Surgery [facility] OR [address] [place] [address] Laina Pillai MD [address] [place] [phone] Left inguinal hernia repair with mesh. [42775 (CPT??)] Scheduled Procedures Name Priority Associated Diagnoses Date/Ti me REPAIR, HERNIA, INGUINAL, REDUCIBLE, WITHOUT HISTORY OF PRIOR REPAIR, AGE 5 YEARS OR OLDER Non-recurrent unilateral inguinal hernia without obstruction or gangrene 12/22/2023 13:10 EDT documented as of this encounter Visit Diagnoses Not on filedocumented in this encounter Care Teams Type Soldering Machine Tender Relationship Specialty Start Date End Date Sabrina Shukla MD [address] [place] [phone] PCP - General 01/01/12 documented as of this encounter
--- OUTSIDE RECORDS SUMMARY | 2023-12-06 18:32 | XMS_ITS | Encounter Summary ---
Author Organization [facility] Address [address] [place] [address] Care Team Providers Care Dump Attendant Name Role Phone Sabrina Shukla MD Primary Care Provider [phone] Encounter Details Date Type Department Care Team (Late st Contact Info) Description 01/01/2012 Phlebotomy Only [facility] [address] [place] [address] Violent Crimes Detective, Outpatient Screening examination for venereal disease Social History Tobacco Use Types Packs/Day Years Used Date Smoking Tobacco: Never Assessed Sex and Gender Information Value Date Recorded Sex Assigned at Not on file Gender Identity Male 08/30/2022 11:14 EDT Sexual Orientation Not on file documented as of this encounter Plan of Treatment Upcoming Encounters Date Type Department Care Team (Latest Contact Info) Description 12/15/2023 15:20 EDT Appointment [facility] Pre-Surgical Testing [address] [place], [place] [phone] 12/22/2023 13:10 EDT Hospital Encounter [facility] OR [address] [place] [phone] Laina Pillai MD [address] [place] [phone] 12/22/2023 13:10 EDT - 12/22/2023 15:05 EDT Surgery [facility] [place] OR [address] [place] [address] Laina Pillai MD [address] [place] [phone] Left inguinal hernia repair with mesh. [52974 (CPT??)] Scheduled Procedures Name Priority Associated Diagnoses [...] 10:44 EDT Screening examination for venereal disease HEPATITIS B SURFACE ANTIBODY Routine 01/01/2012 10:44 EDT Screening examination for venereal disease HEPATITIS B SURFACE ANTIGEN Routine 01/01/2012 10:44 EDT Screening examination for venereal disease documented in this encounter Results * HEPATITIS C ANTIBODY (01/01/2012 10:44 EDT) Hepatitis C Ab Negative [facility] Comment:Reference Range: Neg ative Blood specimen (specimen) 01/01/2012 10:44 EDT 01/01/2012 10:53 EDT Sabrina Shukla MD CHEMISTRY & BLOOD GA S ORDERABLES [facility] [address] [place] [address] * HEPATITIS B SURFACE ANTIBODY (01/01/2012 10:44 EDT) Hepatitis B Surface Ab Negative [facility] Comment: Reference Range: ??Negative Interpretation depends on clinical setting. Blood specimen (specimen) 01/01/2012 10:44 EDT 01/01/2012 10:53 EDT Sabrina Shukla MD CHEMISTRY & BLOOD GA S ORDERABLES Performing Organization Address [facility] de Phone Number [facility] [address] [place] [address] * HEPATITIS B SURFACE ANTIGEN (01/01/2012 10:44 EDT) Hepatitis B Surface Ag Negative [facility] Comment:Reference Range: Neg ative Blood specimen (specimen) 01/01/2012 10:44 EDT 01/01/2012 10:53 EDT Sabrina Shukla MD CHEMISTRY & BLOOD GA S ORDERABLES Performing Organization Address [facility] de Phone Number [facility] [address] [place] [address] documented in this encounter Visit Diagnoses Diagnosis Screening examination for venereal disease Non-recurrent unilateral inguinal hernia without obstruction or gangrene documented in this encounter Care Teams Dump Attendant Relationship Specialty Start Date End Date Sabrina Shukla MD [address] [place] [phone] PCP - General 01/01/12 documented as of this encounter
--- OUTSIDE RECORDS SUMMARY | 2023-12-06 18:32 | XMS_ITS | Encounter Summary ---
Author Organization [facility] Address [address] [place] [address] Care Team Providers Care Home Health Occupational Therapist Name Role Phone Sabrina Shukla MD Primary Care Provider [phone] Encounter Details Date Type Department Care Team (Late st Contact Info) Description 12/27/2015 Abstract [facility] General Surgery - [facility] [address] [place], [place] [address] Bubba Moreno MD [address] [facility], [address] [place] [address] Social History Tobacco Use Types Packs/Day Years Used Date Smoking Tobacco: Never Assessed Sex and Gender Information Value Date Recorded Sex Assigned at Not on file Gender Identity Male 08/30/2022 11:14 EDT Sexual Orientation Not on file documented as of this encounter Plan of Treatment Upcoming Encounters Date Type Department Care Team (Latest Contact Info) Description 12/15/2023 15:20 EDT Appointment [facility] Pre-Surgical Testing [address] [place], [place] [phone] 12/22/2023 13:10 EDT Hospital Encounter [facility] OR [address] [place], [place] [phone] Laina Pillai MD [address] [place] [phone] 12/22/2023 13:10 EDT - 12/22/2023 15:05 EDT Surgery [facility] [place] OR [address] [place] [address] Laina Pillai MD [address] [place] [phone] Left inguinal hernia repair with mesh. [[id number] (CPT??)] Scheduled Procedures Name Priority Associated Diagnoses Date/Ti me REPAIR, HERNIA, INGUINAL, REDUCIBLE, WITHOUT HISTORY OF PRIOR REPAIR, AGE 4 YEARS OR OLDER Non-recurrent unilateral inguinal hernia without obstruction or gangrene 12/22/2023 13:10 EDT documented as of this encounter Visit Diagnoses Not on filedocumented in this encounter Care Teams Home Health Occupational Therapist Relationship Specialty Start Date End Date Sabrina Shukla MD [address] [place] [phone] PCP - General 01/01/12 documented as of this encounter
--- OUTSIDE RECORDS SUMMARY | 2023-12-06 18:32 | XMS_ITS | Encounter Summary ---
Author Organization [facility] Address [address] [place] [address] Care Team Providers Care Health Consultant Name Role Phone Unavailable Primary Care Provider Unavailabl e Encounter Details Date Type Department Care Team (Late st Contact Info) Description 12/31/2011 Orders Only Non [facility] Ancillary Services Sabrina Shukla MD [address] [place] [address] Screening examination for venereal disease (Primary Dx) Social History Tobacco Use Types [...] Appointment [facility] Pre-Surgical Testing [address] [place], [place] [phone] 12/22/2023 13:10 EDT Hospital Encounter [facility] OR [address] [place] [address] Laina Pillai MD [address] [place] [phone] 12/22/2023 13:10 EDT - 12/22/2023 15:05 EDT Surgery [facility] [place] OR [address] [place] [address] Laina Pillai MD [address] [place] [phone] Left inguinal hernia repair with mesh. [[id number] (CPT??)] Scheduled Procedures Name Priority Associated Diagnoses Date/Ti me REPAIR, HERNIA, INGUINAL, REDUCIBLE, WITHOUT HISTORY OF PRIOR REPAIR, AGE 4 YEARS OR OLDER Non-recurrent unilateral inguinal hernia without obstruction or gangrene 12/22/2023 13:10 EDT documented as of this encounter Results * HEPATITIS C ANTIBODY (01/01/2012 10:44 EDT) Hepatitis C Ab Negative [facility] Comment:Reference Range: Neg ative Blood specimen (specimen) 01/01/2012 10:44 EDT 01/01/2012 10:53 EDT Sabrina Shukla MD CHEMISTRY & BLOOD GA S ORDERABLES Performing Organization Address [facility] Co de Phone Number [facility] [address] [place] [address] * HEPATITIS B SURFACE ANTIBODY (01/01/2012 10:44 EDT) Hepatitis B Surface Ab Negative [facility] Comment: Reference Range: ??Negative Interpretation depends on clinical setting. Blood specimen (specimen) 01/01/2012 10:44 EDT 01/01/2012 10:53 EDT Sabrina Shukla MD CHEMISTRY & BLOOD GA S ORDERABLES Performing Organization Address [facility] Co de Phone Number [facility] [address] [place] [address] * HEPATITIS B SURFACE ANTIGEN (01/01/2012 10:44 EDT) Hepatitis B Surface Ag Negative [facility] Comment:Reference Range: Neg ative Blood specimen (specimen) 01/01/2012 10:44 EDT 01/01/2012 10:53 EDT Sabrina Shukla MD CHEMISTRY & BLOOD GA S ORDERABLES Performing Organization Address City/State/[facility] Co de Phone Number [facility] [address] [place] [address] documented in this encounter Visit Diagnoses Diagnosis Screening examination for venereal disease- Primary Non-recurrent unilateral inguinal hernia without obstruction or gangrene documented in this encounter
--- OUTSIDE RECORDS SUMMARY | 2023-12-06 18:32 | XMS_ITS | Encounter Summary ---
Author Organization [facility] Address [address] [place] [address] Care Team Providers Care Handy Worker Name Role Phone Sabrina Shukla MD Primary Care Provider [phone] Reason for Referral * Radiology Services (Routine) - Closed Specialty Diagnoses / Procedures Referred By Contac t Referred To Contact Diagnoses Chronic pain of right knee Procedures KNEE 1 OR 2 VIEWS Demetrio Gregory MD [address] [place] [address] Referral ID Status Reason Start Date Expiration Date Visits Re quested Visits Authorized [id number] Closed 12/29/2016 1 1 * Radiology Services (Routine) - Closed Specialty Diagnoses / Procedures Referred By Contac t Referred To Contact Diagnoses Left hip pain Procedures KNEES 3 VIEWS Demetrio Gregory MD [address] [place] [address] Referral ID Status Reason Start Date Expiration Date Visits Re quested Visits Authorized [id number] Closed 12/29/2016 1 1 * Radiology Services (Routine) - Closed Specialty Diagnoses / Procedures Referred By Contac t Referred To Contact Diagnoses Left hip pain Procedures HIP UNILATERAL 3 VIEWS, OPTIONAL PELVIS Demetrio Gregory MD [address] [place] [phone] Referral ID Status Reason Start Date Expiration Date Visits Re quested Visits Authorized [id number] Closed 12/29/2016 1 1 Encounter Details Date Type Department Care Team (Late st Contact Info) Description 12/29/2016 Orders Only [facility] Total Joint Program - [address] [address] Demetrio Gregory MD [address] [place] [phone] Left hip pain (Primary Dx); Chronic pain of right knee Social History Tobacco Use Types Packs/Day Years [...] Appointment [facility] Pre-Surgical Testing [address] [place] [phone] 12/22/2023 13:10 EDT Hospital Encounter [facility] OR [address] [place] [phone] Laina Pillai MD [address] [place] [phone] 12/22/2023 13:10 EDT - 12/22/2023 15:05 EDT Surgery [facility] OR [address] [place] [phone] Laina Pillai MD [address] [place] [phone] Left inguinal hernia repair with mesh. [[id number] (CPT??)] Scheduled Procedures Name Priority Associated Diagnoses Date/Ti me REPAIR, HERNIA, INGUINAL, REDUCIBLE, WITHOUT HISTORY OF PRIOR REPAIR, AGE 4 YEARS OR OLDER Non-recurrent unilateral inguinal hernia without obstruction or gangrene 12/22/2023 13:10 EDT documented as of this encounter Procedures Procedure Name Priority Date/Time Associated Diagnosis Comments HIP UNILATERAL 3 VIEWS, OPTIONAL PELVIS Routine 12/30/2016 9:32 EDT Left hip pain KNEES 3 VIEWS Routine 12/30/2016 9:32 EDT Left hip pain KNEE 1 OR 2 VIEWS Routine 12/30/2016 9:3 2 EDT Chronic pain of right knee documented in this encounter Results * KNEE 1 OR 2 VIEWS (12/30/2016 9:32 EDT) Anatomical Region Laterality Modality Other 12/30/2016 9:32 EDT 12/30/2016 10:41 EDT Narrative 12/30/2016 10:42 EDT HIP UNILATERAL 3 VIEWS, OPTIONAL PELVIS, KNEES 3 VIEWS, KNEE 1 OR 2 VIEWS ??12/30/2016 9:32 AM Signs and Symptoms/Comments: ?? M25.552-Pain in left hip-ICD-10; left hip pain . AP pelvis, AP left hip, frog leg lateral of the left hip were obtained. 3 views of the right knee and single view of the left knee were obtained Pelvis and left hip findings: There is a somewhat groundglass appearance to the entire left ilium, the left femoral neck, and the proximal left femur. A lang's crook deformity of the left proximal femur is present. There are mild degenerative changes in the left hip. The right hip and right hemipelvis are unremarkable. Bilateral knees findings: The right knee demonstrates mild medial lateral tibiofemoral joint space narrowing. The left knee demonstrates mild medial tibiofemoral joint space narrowing. There is a groundglass appearance to the proximal left tibia which appears expanded. IMPRESSIONS: 1. 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 However, it would be unusual for a patient of this age to present for the 1st time with fibrous dysplasia. If there are previous radiographs for comparison, these would be extremely helpful. If there are no prior radiographs for comparison, bone scan is recommended to determine the extent of polyostotic involvement. 2. Mild degenerative changes of the left hip. Procedure Note Ronna De La Paz MD - 12/30/2016 HIP UNILATERAL 3 VIEWS, OPTIONAL PELVIS, KNEES 3 VIEWS, KNEE 1 OR 2 VIEWS 12/30/2016 9:32 AM Signs and Symptoms/Comments: M25.552-Pain in left hip-ICD-10; left hip pain . AP pelvis, AP left hip, frog leg lateral of the left hip were obtained. 3 views of the right knee and single view of the left knee were obtained Pelvis and left hip findings: There is a somewhat groundglass appearance to the entire left ilium, the left femoral neck, and the proximal left femur. A lang's crook deformity of the left proximal femur is present. There are mild degenerative changes in the left hip. The right hip and right hemipelvis are unremarkable. Bilateral knees findings: The right knee demonstrates mild medial lateral tibiofemoral joint space narrowing. The left knee demonstrates mild medial tibiofemoral joint space narrowing. There is a groundglass appearance to the proximal left tibia which appears expanded. IMPRESSIONS: 1. 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 However, it would be unusual for a patient of this age to present for the 1st time with fibrous dysplasia. If there are previous radiographs for comparison, these would be extremely helpful. If there are no prior radiographs for comparison, bone scan is recommended to determine the extent of polyostotic involvement. 2. Mild degenerative changes of the left hip. Demetrio Gregory MD [facility] DIAGNOST IC IMAGING ORDERABLES * KNEES 3 VIEWS (12/30/2016 9:32 EDT) Anatomical Region Laterality Modality Other 12/30/2016 9:32 EDT 12/30/2016 10:41 EDT Narrative 12/30/2016 10:42 EDT HIP UNILATERAL 3 VIEWS, OPTIONAL PELVIS, KNEES 3 VIEWS, KNEE 1 OR 2 VIEWS ??12/30/2016 9:32 AM Signs and Symptoms/Comments: ?? M25.552-Pain in left hip-ICD-10; left hip pain . AP pelvis, AP left hip, frog leg lateral of the left hip were obtained. 3 views of the right knee and single view of the left knee were obtained Pelvis and left hip findings: There is a somewhat groundglass appearance to the entire left ilium, the left femoral neck, and the proximal left femur. A lang's crook deformity of the left proximal femur is present. There are mild degenerative changes in the left hip. The right hip and right hemipelvis are unremarkable. Bilateral knees findings: The right knee demonstrates mild medial lateral tibiofemoral joint space narrowing. The left knee demonstrates mild medial tibiofemoral joint space narrowing. There is a groundglass appearance to the proximal left tibia which appears expanded. IMPRESSIONS: 1. 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 However, it would be unusual for a patient of this age to present for the 1st time with fibrous dysplasia. If there are previous radiographs for comparison, these would be extremely helpful. If there are no prior radiographs for comparison, bone scan is recommended to determine the extent of polyostotic involvement. 2. Mild degenerative changes of the left hip. Procedure Note Ronna De La Paz MD - 12/30/2016 HIP UNILATERAL 3 VIEWS, OPTIONAL PELVIS, KNEES 3 VIEWS, KNEE 1 OR 2 VIEWS 12/30/2016 9:32 AM Signs and Symptoms/Comments: M25.552-Pain in left hip-ICD-10; left hip pain . AP pelvis, AP left hip, frog leg lateral of the left hip were obtained. 3 views of the right knee and single view of the left knee were obtained Pelvis and left hip findings: There is a somewhat groundglass appearance to the entire left ilium, the left femoral neck, and the proximal left femur. A lang's crook deformity of the left proximal femur is present. There are mild degenerative changes in the left hip. The right hip and right hemipelvis are unremarkable. Bilateral knees findings: The right knee demonstrates mild medial lateral tibiofemoral joint space narrowing. The left knee demonstrates mild medial tibiofemoral joint space narrowing. There is a groundglass appearance to the proximal left tibia which appears expanded. IMPRESSIONS: 1. 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 However, it would be unusual for a patient of this age to present for the 1st time with fibrous dysplasia. If there are previous radiographs for comparison, these would be extremely helpful. If there are no prior radiographs for comparison, bone scan is recommended to determine the extent of polyostotic involvement. 2. Mild degenerative changes of the left hip. Demetrio Gregory MD [facility]AGING ORDERABLES * HIP UNILATERAL 3 VIEWS, OPTIONAL PELVIS (12/30/2016 9:32 EDT) Anatomical Region Laterality Modality Other 12/30/2016 9:32 EDT 12/30/2016 10:41 EDT Narrative 12/30/2016 10:42 EDT HIP UNILATERAL 3 VIEWS, OPTIONAL PELVIS, KNEES 3 VIEWS, KNEE 1 OR 2 VIEWS ??12/30/2016 9:32 AM Signs and Symptoms/Comments: ?? M25.552-Pain in left hip-ICD-10; left hip pain . AP pelvis, AP left hip, frog leg lateral of the left hip were obtained. 3 views of the right knee and single view of the left knee were obtained Pelvis and left hip findings: There is a somewhat groundglass appearance to the entire left ilium, the left femoral neck, and the proximal left femur. A lang's crook deformity of the left proximal femur is present. There are mild degenerative changes in the left hip. The right hip and right hemipelvis are unremarkable. Bilateral knees findings: The right knee demonstrates mild medial lateral tibiofemoral joint space narrowing. The left knee demonstrates mild medial tibiofemoral joint space narrowing. There is a groundglass appearance to the proximal left tibia which appears expanded. IMPRESSIONS: 1. 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 However, it would be unusual for a patient of this age to present for the 1st time with fibrous dysplasia. If there are previous radiographs for comparison, these would be extremely helpful. If there are no prior radiographs for comparison, bone scan is recommended to determine the extent of polyostotic involvement. 2. Mild degenerative changes of the left hip. Procedure Note Ronna De La Paz MD - 12/30/2016 HIP UNILATERAL 3 VIEWS, OPTIONAL PELVIS, KNEES 3 VIEWS, KNEE 1 OR 2 VIEWS 12/30/2016 9:32 AM Signs and Symptoms/Comments: M25.552-Pain in left hip-ICD-10; left hip pain . AP pelvis, AP left hip, frog leg lateral of the left hip were obtained. 3 views of the right knee and single view of the left knee were obtained Pelvis and left hip findings: There is a somewhat groundglass appearance to the entire left ilium, the left femoral neck, and the proximal left femur. A lang's crook deformity of the left proximal femur is present. There are mild degenerative changes in the left hip. The right hip and right hemipelvis are unremarkable. Bilateral knees findings: The right knee demonstrates mild medial lateral tibiofemoral joint space narrowing. The left knee demonstrates mild medial tibiofemoral joint space narrowing. There is a groundglass appearance to the proximal left tibia which appears expanded. IMPRESSIONS: 1. 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 However, it would be unusual for a patient of this age to present for the 1st time with fibrous dysplasia. If there are previous radiographs for comparison, these would be extremely helpful. If there are no prior radiographs for comparison, bone scan is recommended to determine the extent of polyostotic involvement. 2. Mild degenerative changes of the left hip. Demetrio Gregory MD [facility]AG[facility] ORDERABLES documented in this encounter Visit Diagnoses Diagnosis Left hip pain- Primary Pain in joint, pelvic region and thigh Chronic pain of right knee Non-recurrent unilateral inguinal hernia without obstruction or gangrene documented in this encounter Care Teams Handy Worker Relationship Specialty Start Date End Date Sabrina Shukla MD [address] [place] [phone] PCP - General 01/01/12 documented as of this encounter
--- OUTSIDE RECORDS SUMMARY | 2023-12-06 18:32 | XMS_ITS | Encounter Summary ---
Author Organization [facility] Address [address] [place] [address] Care Team Providers Care Stereotyper Name Role Phone Sabrina Shukla MD Primary Care Provider [phone] Reason for Visit * Reason Onset Date Comments Other 12/31/2015 Patient is havin g hernia surgery and has many questions. Encounter Details Date Type Department Care Team (Late st Contact Info) Description 12/31/2015 Telephone [facility] General Surgery - [facility] [address], [place] [id number] Bubba Moreno MD [address] [facility], [address] [place] [address] Other (Patient is having hernia surgery and has many questions.) Social History Tobacco Use Types Packs/Day Years Used Date Smoking Tobacco: Never Smokeless Tobacco: Never Sex and Gender Information Value Date Recorded Sex Assigned at Not on file Gender Identity Male 08/30/2022 11:14 EDT Sexual Orientation Not on file documented as of this encounter Miscellaneous Notes * Telephone Encounter - Julia Anguiano RN - 01/01/2016 1419 EDT Left message in regards to lifting/pulling/pushing restrictions after surgery, patient to call prn. * Telephone Encounter - Julia Anguiano RN - 12/31/2015 1052 EDT Patients mom gave his cell number. Patient has 3 children she helps take care of while he is working. He needs to know what his restrictions are for after surgery. documented in this encounter Plan of Treatment Upcoming Encounters Date Type Department Care Team (Latest Contact Info) Description 12/15/2023 15:20 EDT Appointment [facility] Pre-Surgical Testing [address], [place] [id number] 12/22/2023 13:10 EDT Hospital Encounter [facility] OR [address] [place] [id number] Laina Pillai MD [address] [place] [phone] 12/22/2023 13:10 EDT - 12/22/2023 15:05 EDT Surgery [facility] [place] [address] [place] [id number] Laina Pillai MD [address] [place] [phone] Left inguinal hernia repair with mesh. [57712 (CPT??)] Scheduled Procedures Name Priority Associated Diagnoses Date/Ti me REPAIR, HERNIA, INGUINAL, REDUCIBLE, WITHOUT HISTORY OF PRIOR REPAIR, AGE 4 YEARS OR OLDER Non-recurrent unilateral inguinal hernia without obstruction or gangrene 12/22/2023 13:10 EDT documented as of this encounter Visit Diagnoses Not on filedocumented in this encounter Care Teams Stereotyper Relationship Specialty Start Date End Date Sabrina Shukla MD [address] [place] [address] PCP - General 01/01/12 documented as of this encounter
[2023-12-06 21:22] LABS: HCT 39.8 % (40.0-50.0); HGB 13.5 g/dL (13.5-17.5); MCH 30.2 pg (27.0-33.0); MCHC 33.9 % (32.0-36.0); MCV 89 fL (80-95); MPV 9.8 fL (8.0-11.0); Platelet Count 268 10^3/uL (130-400); RBC 4.47 10^6/uL (4.36-5.78); RDW 12.2 % (11.8-14.1); WBC 10.34 10^3/uL (4.4-10.8)
== END 2023-12-06 18:29 | disposition home or self-care (01) ==
LOC: NCHCN 18:28
PROVIDERS: Visit Provider Family Medicine
DX: Z01.818 Encounter for other preprocedural examination (principal)
CPT/HCPCS: 85027